=== PATIENT | male | born 1935 | race Caucasian/White ===

== ENCOUNTER 2017-11-17 17:15 | Inpatient (IN) | payer MEDICARE, MEDICAID ==
[2017-11-17] MEDS ORDERED: Lactated Ringer 1,000 ML IV ONE ×2 (17:26→17:42)
[2017-11-17 17:48] LABS: % BASOPHILS 1.5 % (0.0-2.0); % LYMPHOCYTES 24.4 % (20.0-50.0); % NEUTROPHILS 64.1 % (40.0-80.0); BASOPHILE ABSOLUTE 0.1 Th/cumm (0-0.2); EOSINOPHILE ABSOLUTE 0.2 Th/cmm (0.1-0.4); HEMATOCRIT 39.6 % (41.0-60); HEMOGLOBIN 13.2 gm/dL (12-16); LYMPHOCYTE ABSOLUTE 2.4 Th/cmm (1.5-3.0); MEAN CELL VOLUME 95.5 fl (80-99); MEAN CORPUSCULAR HEMOGLOBIN 31.9 pg (27.0-31.0); MEAN CORPUSCULAR HGB CONC 33.4 pg (28.0-36.0); MEAN PLATELET VOLUME 8.7 fl; MONOCYTE ABSOLUTE 0.8 Th/cmm (0.3-1.0); NEUTROPHILE ABSOLUTE 6.3 Th/cmm (1.8-8.0); PLATELET COUNT 322 Th/cmm (150-400); RED BLOOD COUNT 4.15 Mil/cmm (3.80-5.80); RED CELL DISTRIBUTION WIDTH 13.8 % (11.5-20.0); WHITE BLOOD COUNT 9.8 Th/cmm (4.8-10.8)
[2017-11-17 18:55] LABS: CHLORIDE 100 mEq/L (98-107); POTASSIUM SERUM 4.2 mEq/L (3.5-5.1); SODIUM SERUM 134 mEq/L (136-145)
[2017-11-17 18:56] LABS: ALB/GLOB RATIO 0.9 (1.0-1.8); ALBUMIN 2.8 gm/dL (4.2-5.5); ALKALINE PHOSPHATASE 71 U/L (34-104); ANION GAP 13.1 (7.0-16.0); BILIRUBIN,TOTAL 0.3 mg/dL (0.3-1.0); BUN - UREA NITROGEN 11 mg/dL (7-25); CALCIUM SERUM 8.4 mg/dL (8.6-10.3); CARBON DIOXIDE 25.1 mEq/L (21.0-31.0); CREATININE - SERUM 0.6 mg/dL (0.7-1.3); GLUCOSE 152 mg/dL (70-105); MAGNESIUM 1.7 mg/dL (1.9-2.7); PHOSPHOROUS 2.8 mg/dL (2.5-5.0); SGOT 15 U/L (13-39); SGPT/ALT 11 U/L (7-52); TOTAL PROTEIN,SERUM 5.9 gm/dL (6.0-8.3)
[2017-11-17] MEDS ORDERED: Clindamycin 300mg/50mL 300 MG/50 ML BAG IV ONE (19:15)
[2017-11-17] MEDS ORDERED: Clindamycin 150 mg/mL 4mL Vial ONE (19:52)
--- NOTE | 2017-11-17 20:27 | ED Physician Chart ---
ED Chief Complaint/HPI - Patient Information Date Seen:: 11/17/17 Time Seen:: 17:25 Chief Complaint:: increased agitation History of Present Illness:: increased agitation Upon arrival, SBP was high 50's. patient is markedly dehydrated. IV hydration begun. Heart rate was as high as 138 plus. Allergies:: Allergies Allergy/AdvReac Type Severity Reaction Status Date / Time Penicillins Allergy Verified 11/17/17 17:48 Vitals:: Vital Signs - 8 hr 11/17/17 17:22 Temp 97.3 F HR 127 RR 24 BP 83/53 O2 Sat % 94 ED Review of Systems - Review of Systems General/Constitutional: Weakness Skin: Other (skin breakdown) Head: No headache, No light-headedness Eyes: No loss of vision, No pain, No diplopia ENT: No earache, No nasal drainage, No sore throat, No tinnitus Neck: No neck pain, No swelling, No thyromegaly, No stiffness, No mass noted Cardio Vascular: No chest pain, No palpitations, No PND, No orthopnea, No edema Pulmonary: No SOB, No cough, No sputum, No wheezing GI: No nausea, No vomiting, No diarrhea, No pain, No melena, No hematochezia, No constipation, No hematemesis Musculoskeletal: Bone or joint pain Endocrine: No polyuria, No polydipsia Psychiatric: Prior psych history Allergic/Immuno: No urticaria, No angioedema Neurological: No syncope, No focal symptoms, No weakness, No paresthesia, No headache, No seizure, No dizziness, No confusion, No vertigo ED Past Medical History - Past Medical History Obtainable: No Past Medical History: Thyroid disorder, Other (gtube) Psychiatricy History: Bipolar, Other (anxiety disorder and schizoaffective disorder) Family Medical History - Family Member Mother History Unknown: Yes ED Physical Exam - Physical Examination Other Gen/Cons comments:: chronically ill appearing. failure to thrive. Head: Atraumatic Other Eyes comments:: eyes sunken in Other Skin comments:: thoracic decubitus which is deep down to spinal vertebrae. 4 inches x 4 inches in size with necrotic eschar. right hip decubitus about 1.5 x 1.5 inches. left knee decubitus 1 x 1 inch. Neck: Nontender Other Respiratory comments:: decreased breath sounds at bases. Other Cardio Vascular comments:: tachycardia. ED Labs/Radiology/EKG Results - Lab Results Results: Laboratory Tests 11/17/17 11/17/17 11/17/17 17:26 17:35 17:35 WBC 9.8 RBC 4.15 Hgb 13.2 Hct 39.6 L MCV 95.5 MCH 31.9 H MCHC Differential 33.4 RDW 13.8 Plt Count 322 MPV 8.7 Neutrophils % 64.1 Lymphocytes % 24.4 Monocytes % 8.0 Eosinophils % 2.0 Basophils % 1.5 Sodium 134 L Potassium 4.2 Chloride 100 Carbon Dioxide 25.1 Anion Gap 13.1 BUN 11 Creatinine 0.6 L Est GFR ( Amer) TNP Est GFR (Non-Af Amer) TNP BUN/Creatinine Ratio 18.3 Glucose 152 H Calcium 8.4 L Phosphorus 2.8 Magnesium 1.7 L Total Bilirubin 0.3 AST 15 ALT 11 Alkaline Phosphatase 71 Total Protein 5.9 L Albumin 2.8 L Globulin 3.1 Albumin/Globulin Ratio 0.9 L Valproic Acid 19.8 L ED Assessment - Assessment General Assessment: coloring is slightly better and mentation better s/p IV hydration EKG from 20:39:47 p.m.: sinus tachycardia with low voltage and one pvc. spoke to Dr. Cevallos about admitting this patient at 20:25 p.m. ED Septic Shock - . 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
[2017-11-17] MEDS ORDERED: Sodium Chloride 0.9% 1,000 ML IV ONE (20:36)
[2017-11-18 05:17] LABS: % BASOPHILS 0.6 % (0.0-2.0); % EOSINOPHILS 2.9 % (0.0-5.0); % LYMPHOCYTES 22.2 % (20.0-50.0); % MONOCYTES 7.8 % (2.0-10.0); % NEUTROPHILS 66.5 % (40.0-80.0); BASOPHILE ABSOLUTE 0.1 Th/cumm (0-0.2); EOSINOPHILE ABSOLUTE 0.3 Th/cmm (0.1-0.4); HEMATOCRIT 36.9 % (41.0-60); HEMOGLOBIN 12.3 gm/dL (12-16); LYMPHOCYTE ABSOLUTE 2.2 Th/cmm (1.5-3.0); MEAN CORPUSCULAR HEMOGLOBIN 31.7 pg (27.0-31.0); MEAN CORPUSCULAR HGB CONC 33.3 pg (28.0-36.0); MEAN PLATELET VOLUME 9.3 fl; MONOCYTE ABSOLUTE 0.8 Th/cmm (0.3-1.0); NEUTROPHILE ABSOLUTE 6.3 Th/cmm (1.8-8.0); PLATELET COUNT 312 Th/cmm (150-400); RED BLOOD COUNT 3.88 Mil/cmm (3.80-5.80); RED CELL DISTRIBUTION WIDTH 13.8 % (11.5-20.0); WHITE BLOOD COUNT 9.7 Th/cmm (4.8-10.8)
[2017-11-18 05:36] LABS: ALB/GLOB RATIO 0.8 (1.0-1.8); ALBUMIN 2.6 gm/dL (4.2-5.5); ALKALINE PHOSPHATASE 61 U/L (34-104); ANION GAP 8.4 (7.0-16.0); BILIRUBIN,TOTAL 0.3 mg/dL (0.3-1.0); BUN - UREA NITROGEN 8 mg/dL (7-25); CALCIUM SERUM 8.7 mg/dL (8.6-10.3); CARBON DIOXIDE 27.1 mEq/L (21.0-31.0); CHLORIDE 104 mEq/L (98-107); CREATININE - SERUM 0.5 mg/dL (0.7-1.3); GLUCOSE 91 mg/dL (70-105); POTASSIUM SERUM 4.5 mEq/L (3.5-5.1); SGOT 15 U/L (13-39); SGPT/ALT 9 U/L (7-52); SODIUM SERUM 135 mEq/L (136-145); TOTAL PROTEIN,SERUM 5.8 gm/dL (6.0-8.3)
[2017-11-18] MEDS: Levothyroxine 0.075 Mg Tab PO SCH (06:51)
[2017-11-18] MEDS: Docusate Sodium 100 mg/10 mL UD GT SCH (08:36)
--- NOTE | 2017-11-18 08:56 | Diagnostic Imaging Report ---
CHEST X-RAY: AP view INDICATION: Decubitus ulcer COMPARISON: None FINDINGS: Patient is mildly rotated. No focal consolidation or effusions. Left midlung subsegmental atelectasis versus scarring is noted. Heart size is normal. Low lung lungs are noted limiting exam. Osseous structures are intact. Gas-filled loops of bowel are noted. IMPRESSION: No focal consolidation identified. Left midlung subsegmental atelectasis versus scarring. Given patient's clinical history if there is concern for osteomyelitis, nuclear medicine bone scan or MRI may be obtained for further assessment.
--- NOTE | 2017-11-18 08:59 | History and Physical ---
History of Present Illness - HPI Chief Complaint: Increased in agitation HPI: Patient was send from SNF to ER for evaluation for increased in agitation. During ER evaluation was found patient hypotense,, dehydrated and tachicardic reason why he was send to Telemetry. Vital Signs: Last Vital Signs Temp 98.0 F 11/18/17 08:00 Pulse 98 11/18/17 08:00 Resp 18 11/18/17 08:00 BP 112/64 11/18/17 08:00 Pulse Ox 96 11/18/17 08:00 Past Medical History Cardiovascular: Report: CAD, CHF Pulmonary: Report: COPD DIRECT SUPPORT PROFESSIONAL: Report: Dementia GI: Report: Other (Dysphagia, G-tube in place.) Psych: Report: Bipolar, Schizophrenia Musculoskeletal: Report: Muscle Atrophy, Weakness Rheumatologic: Report: No pertinent Hx Infectious Disease: Report: No Pertinent Hx Renal/: Report: No Pertinent Hx Endocrine: Report: No Pertinent Hx Dermatology: Report: Other (Decubit ulcer) - Past Surgical History Past Surgical History: No pertinent Hx Family Medical History - Family Member Mother History Unknown: Yes Social History Smoke: No Alcohol: None Drugs: None Lives: [facility] Domestic Violence: Negative - Medications Home Medications: Home Medication Medication Instructions Recorded Type Acetaminophen [Mapap] 30 ml GT Q6H PRN 11/17/17 History Alprazolam 1 tab GT Q6H PRN 11/17/17 History Ascorbic Acid [Vitamin C] 500 mg GT DAILY 11/17/17 History Bisacodyl 10 mg RC DAILY PRN 11/17/17 History Collagenase Clostridium Hist. 1 appl TP Q72HR 11/17/17 History [Santyl] Divalproex [Depakojessica RANGEL] 125 mg GT TID 11/17/17 History Docusate Sodium [Colace] 100 mg GT DAILY 11/17/17 History Hyoscyamine Sulfate [Levsin-Sl] 1 - 2 mg SL Q4H PRN 11/17/17 History Levothyroxine [Synthroid] 0.075 mg PO QDAC 11/17/17 History Lorazepam [Ativan] 2 mg GT Q6HR PRN 11/17/17 History Midodrine [Proamatine] 10 mg GT Q6HR 11/17/17 History Morphine Sulfate 0.5 ml PO Q2HR PRN 11/17/17 History Ondansetron [Zofran ODT] 4 mg PO Q6HR PRN 11/17/17 History Ppd [Tubersol] 0.1 ml ID QPM 11/17/17 History Protein Supplement [Promod 946 ml] 30 ml GT DAILY 11/17/17 History QUEtiapine Fumarate [SEROquel] 125 mg GT BID 11/17/17 History Zinc Sulfate 220 mg GT DAILY 11/17/17 History - Allergies Allergies/Adverse Reactions: Allergies Allergy/AdvReac Type Severity Reaction Status Date / Time Penicillins Allergy Verified 11/17/17 17:48 Review of Systems - Review of Systems Constitutional: Report: Weakness Eyes: Report: No Significant ENT: Report: No Significant Respiratory: Report: No Significant Cardiovascular: Report: No Significant Gastrointestinal: Report: No Significant Genitourinary: Report: No Significant Musculoskeletal: Report: No Significant Skin: Report: Other (Decubit ulcers) Neurological: Report: Confusion Physical Exam - Physical Exam HEENT: Report: Ears Nose Throat within normal limits Neck: Report: Within normal limits Cardiovascular Systems: Report: Regular, Rate and Rhythm Respiratory: Report: Breath Sounds are within normal limits Abdomen: Report: Non-tender to palpation Back: Report: Other (thoracic decubit ulcers) Extremities: Report: Non-tender to palpation. Skin: Report: Other (Decjubit ulcers in thoracic area and hip area) Neuro/Psych: Report: Other (Patient agitated) - Lab Results All Lab Results last 24 hours: Laboratory Results - last 24 hr 11/17/17 11/17/17 11/17/17 17:26 17:35 17:35 WBC 9.8 RBC 4.15 Hgb 13.2 Hct 39.6 L MCV 95.5 MCH 31.9 H MCHC Differential 33.4 RDW 13.8 Plt Count 322 MPV 8.7 Neutrophils % 64.1 Lymphocytes % 24.4 Monocytes % 8.0 Eosinophils % 2.0 Basophils % 1.5 Sodium Potassium Chloride Carbon Dioxide Anion Gap BUN Creatinine Est GFR ( Amer) Est GFR (Non-Af Amer) BUN/Creatinine Ratio Glucose Calcium Phosphorus Magnesium Total Bilirubin AST ALT Alkaline Phosphatase Total Protein Albumin Globulin Albumin/Globulin Ratio TSH 15.54 H Valproic Acid 19.8 L 11/17/17 11/18/17 11/18/17 17:35 04:30 04:30 WBC 9.7 RBC 3.88 Hgb 12.3 Hct 36.9 L MCV 95.0 MCH 31.7 H MCHC Differential 33.3 RDW 13.8 Plt Count 312 MPV 9.3 Neutrophils % 66.5 Lymphocytes % 22.2 Monocytes % 7.8 Eosinophils % 2.9 Basophils % 0.6 Sodium 134 L 135 L Potassium 4.2 4.5 Chloride 100 104 Carbon Dioxide 25.1 27.1 Anion Gap 13.1 8.4 BUN 11 8 Creatinine 0.6 L 0.5 L Est GFR ( Amer) TNP TNP Est GFR (Non-Af Amer) TNP TNP BUN/Creatinine Ratio 18.3 16.0 Glucose 152 H 91 Calcium 8.4 L 8.7 Phosphorus 2.8 Magnesium 1.7 L Total Bilirubin 0.3 0.3 AST 15 15 ALT 11 9 Alkaline Phosphatase 71 61 Total Protein 5.9 L 5.8 L Albumin 2.8 L 2.6 L Globulin 3.1 3.2 Albumin/Globulin Ratio 0.9 L 0.8 L TSH Valproic Acid - Assessment Assessment: Patient is awake, agitated at moments. Dx: Increased in agitation, Dehydration, Hypotension, Failure to trieve, Decubit ulcer in thoracic area and hip area, COPD, Schizophrenia, Bipolar, Dysphagia. - Plan Plan: Patient is in IV NS cojntinue with SNF meds, wound consult is requested, will continue to monitor.
--- NOTE | 2017-11-18 09:16 | Diagnostic Imaging Report ---
Thoracic spine 2 views History: Decubitus ulcer, rule out osteomyelitis Comparison: None Findings: Exam is limited as patient could not tolerate additional views. Degenerative changes of the spine are noted with spinal scoliosis. Postsurgical changes of the upper abdomen are noted. There appear to be a mild chronic compression deformity of lower vertebral body. No definite subluxation. Assessment of the cervical thoracic junction is limited due to body habitus. There is also increase of the thoracic kyphosis. No gross erosions identified. Gas-filled loops of bowel are noted with copious stool in the right colon. IMPRESSION: Limited examination due to body habitus and spinal scoliosis and thoracic kyphosis. No gross erosions, however, if there is concern for osteomyelitis, follow-up MRI may be obtained for further assessment. Degenerative changes spine and spinal scoliosis. Postsurgical changes in the upper abdomen. In the setting of trauma, if clinical symptoms persist and there is continued concern for an occult fracture, follow up exams in 5-7 days is recommended.
[2017-11-18] MEDS ORDERED: Mag Sulfate 2gm/50mL Premix 2 GM/50 ML BAG IV ONE (10:00)
[2017-11-18] MEDS: Sodium Chloride 0.9% 1,000 ML IV SCH (11:04)
--- NOTE | 2017-11-18 15:05 | Consultation ---
DATE OF CONSULTATION: 11/18/2017 SURGICAL CONSULTATION REFERRING PHYSICIAN: Dr. Cevallos. REASON FOR CONSULTATION: Decubitus ulcer, back. Thank you for referring this patient to me. HISTORY OF PRESENT ILLNESS: This is an 84-year-old male admitted to the hospital because of increased agitation. The patient comes from SNF with previous history of coronary artery disease, CHF, COPD, schizophrenia and dementia and bedridden status apparently. No information other than on the chart because the patient is unable to communicate. LABORATORY STUDIES: CBC is normal and chemistry as well. Chest x-ray shows no acute disease. CT scan of the spine shows kyphosis and scoliosis. PHYSICAL EXAMINATION: GENERAL: The patient is restrained. There is a stage 3 at least, ulcer at the mid spine corresponding to pressure from likely lying down on his back most of the time. This necrotic tissues need to be debrided and application of Santyl would be recommended. We will try and obtain consent for the procedure. JOB# [id number]
[2017-11-18 17:35] LABS: URINE SOURCE CLEAN C
[2017-11-18 17:37] LABS: URINE BILIRUBIN NEGATIVE (NEGATIVE); URINE BLOOD NEGATIVE (NEGATIVE); URINE GLUCOSE (UA) NEGATIVE (NEGATIVE); URINE KETONE NEGATIVE (NEGATIVE); URINE LEUKOCYTE ESTERASE TRACE (NEGATIVE); URINE MICROSCOPIC INDICATED? YES; URINE NITRATE POSITIVE (NEGATIVE); URINE PROTEIN NEGATIVE (NEGATIVE); URINE UROBILINOGEN 0.2 E.U./dL (0.2 - 1.0)
[2017-11-18 17:41] LABS: URINE COLOR YELLOW
[2017-11-18 17:42] LABS: URINE CLARITY HAZY (CLEAR)
[2017-11-18 17:43] LABS: URINE EPITHELIAL CELLS FEW /lpf (FEW); URINE RBC 0-2 /hpf (0-5)
[2017-11-18 17:44] LABS: URINE BACTERIA 3+ /hpf (NONE SEEN)
[2017-11-18 17:50] LABS: AMPHETAMINE URINE NEGATIVE (NEGATIVE); BARBITURATES URINE NEGATIVE (NEGATIVE); BENZODIAZEPINES QUAL URINE POSITIVE (NEGATIVE); CANNABINOID THC NEGATIVE (NEGATIVE); COCAINE METABOLITE QUAL URINE NEGATIVE (NEGATIVE); METHADONE URINE NEGATIVE (NEGATIVE); METHAMPHETAMINES QUAL URINE NEGATIVE (NEGATIVE); OPIATES (MORPHINE) QUAL. URINE NEGATIVE (NEGATIVE); PHENCYCLIDINE (PCP) URINE NEGATIVE (NEGATIVE); TRICYCLICS (TCA) QUAL. URINE POSITIVE (NEGATIVE)
[2017-11-18] MEDS: Levofloxacin 500mg/100mL 500 MG/100 ML BAG IV SCH (20:42)
[2017-11-19 06:28] LABS: % BASOPHILS 0.3 % (0.0-2.0); % EOSINOPHILS 3.1 % (0.0-5.0); % LYMPHOCYTES 29.4 % (20.0-50.0); % MONOCYTES 7.5 % (2.0-10.0); % NEUTROPHILS 59.7 % (40.0-80.0); EOSINOPHILE ABSOLUTE 0.3 Th/cmm (0.1-0.4); HEMATOCRIT 39.6 % (41.0-60); LYMPHOCYTE ABSOLUTE 3.1 Th/cmm (1.5-3.0); MEAN CELL VOLUME 96.8 fl (80-99); MEAN CORPUSCULAR HEMOGLOBIN 31.9 pg (27.0-31.0); MEAN CORPUSCULAR HGB CONC 32.9 pg (28.0-36.0); MEAN PLATELET VOLUME 8.7 fl; MONOCYTE ABSOLUTE 0.8 Th/cmm (0.3-1.0); NEUTROPHILE ABSOLUTE 6.2 Th/cmm (1.8-8.0); PLATELET COUNT 325 Th/cmm (150-400); RED BLOOD COUNT 4.09 Mil/cmm (3.80-5.80); WHITE BLOOD COUNT 10.4 Th/cmm (4.8-10.8)
[2017-11-19] MEDS: Levothyroxine 0.075 Mg Tab PO SCH (06:45)
[2017-11-19] MEDS: Sodium Chloride 0.9% 1,000 ML IV SCH (06:55)
[2017-11-19] MEDS ORDERED: Venelex 60gm Tube TP ONE (07:29)
[2017-11-19] MEDS ORDERED: LIDOCAINE MPF INJ ONE (07:50)
[2017-11-19] MEDS ORDERED: fentaNYL Citrate 100 mcg/2mL Vial ONE (08:06)
[2017-11-19] MEDS ORDERED: Propofol **SURGERY USE ONLY** 20 ML IV ONE (08:07)
[2017-11-19 09:17] LABS: ALB/GLOB RATIO 0.9 (1.0-1.8); ALKALINE PHOSPHATASE 64 U/L (34-104); ANION GAP 15.2 (7.0-16.0); BILIRUBIN,TOTAL 0.3 mg/dL (0.3-1.0); BUN - UREA NITROGEN 8 mg/dL (7-25); CALCIUM SERUM 8.8 mg/dL (8.6-10.3); CARBON DIOXIDE 19.2 mEq/L (21.0-31.0); CHLORIDE 106 mEq/L (98-107); CREATININE - SERUM 0.5 mg/dL (0.7-1.3); GLUCOSE 91 mg/dL (70-105); POTASSIUM SERUM 4.4 mEq/L (3.5-5.1); SGOT 18 U/L (13-39); SGPT/ALT 11 U/L (7-52); SODIUM SERUM 136 mEq/L (136-145); TOTAL PROTEIN,SERUM 6.3 gm/dL (6.0-8.3)
--- NOTE | 2017-11-19 09:19 | General Progress Note ---
Subjective - Review of Systems Service Date: 11/19/17 Subjective: Patient confused Objective - Results Result Diagrams: 11/20/17 05:45 11/20/17 05:45 Recent Labs: Laboratory Last Values WBC 10.4 Th/cmm (4.8-10.8) 11/19/17 05:45 RBC 4.09 Mil/cmm (3.80-5.80) 11/19/17 05:45 Hgb 13.0 gm/dL (12-16) 11/19/17 05:45 Hct 39.6 % (41.0-60) L 11/19/17 05:45 MCV 96.8 fl (80-99) 11/19/17 05:45 MCH 31.9 pg (27.0-31.0) H 11/19/17 05:45 MCHC Differential 32.9 pg (28.0-36.0) 11/19/17 05:45 RDW 14.0 % (11.5-20.0) 11/19/17 05:45 Plt Count 325 Th/cmm (150-400) 11/19/17 05:45 MPV 8.7 fl 11/19/17 05:45 Neutrophils % 59.7 % (40.0-80.0) 11/19/17 05:45 Lymphocytes % 29.4 % (20.0-50.0) 11/19/17 05:45 Monocytes % 7.5 % (2.0-10.0) 11/19/17 05:45 Eosinophils % 3.1 % (0.0-5.0) 11/19/17 05:45 Basophils % 0.3 % (0.0-2.0) 11/19/17 05:45 Sodium 135 mEq/L (136-145) L 11/18/17 04:30 Potassium 4.5 mEq/L (3.5-5.1) 11/18/17 04:30 Chloride 104 mEq/L (98-107) 11/18/17 04:30 Carbon Dioxide 27.1 mEq/L (21.0-31.0) 11/18/17 04:30 Anion Gap 8.4 (7.0-16.0) 11/18/17 04:30 BUN 8 mg/dL (7-25) 11/18/17 04:30 Creatinine 0.5 mg/dL (0.7-1.3) L 11/18/17 04:30 Est GFR ( Amer) TNP 11/18/17 04:30 Est GFR (Non-Af Amer) TNP 11/18/17 04:30 BUN/Creatinine Ratio 16.0 11/18/17 04:30 Glucose 91 mg/dL (70-105) 11/18/17 04:30 POC Glucose 79 MG/DL (70 - 105) 11/19/17 06:25 Calcium 8.7 mg/dL (8.6-10.3) 11/18/17 04:30 Phosphorus 2.8 mg/dL (2.5-5.0) 11/17/17 17:35 Magnesium 1.7 mg/dL (1.9-2.7) L 11/17/17 17:35 Total Bilirubin 0.3 mg/dL (0.3-1.0) 11/18/17 04:30 AST 15 U/L (13-39) 11/18/17 04:30 ALT 9 U/L (7-52) 11/18/17 04:30 Alkaline Phosphatase 61 U/L (34-104) 11/18/17 04:30 Total Protein 5.8 gm/dL (6.0-8.3) L 11/18/17 04:30 Albumin 2.6 gm/dL (4.2-5.5) L 11/18/17 04:30 Globulin 3.2 gm/dL 11/18/17 04:30 Albumin/Globulin Ratio 0.8 (1.0-1.8) L 11/18/17 04:30 TSH 15.54 uIU/ml (0.34-5.60) H 11/17/17 17:35 Urine Source CLEAN C 11/18/17 17:30 Urine Color YELLOW 11/18/17 17:30 Urine Clarity HAZY (CLEAR) 11/18/17 17:30 Urine pH 6.0 (4.6 - 8.0) 11/18/17 17:30 Ur Specific [place] 1.020 (1.005-1.030) 11/18/17 17:30 Urine Protein NEGATIVE mg/dL (NEGATIVE) 11/18/17 17:30 Urine Glucose (UA) NEGATIVE mg/dL (NEGATIVE) 11/18/17 17:30 Urine Ketones NEGATIVE mg/dL (NEGATIVE) 11/18/17 17:30 Urine Blood NEGATIVE (NEGATIVE) 11/18/17 17:30 Urine Nitrate POSITIVE (NEGATIVE) H 11/18/17 17:30 Urine Bilirubin NEGATIVE (NEGATIVE) 11/18/17 17:30 Urine Urobilinogen 0.2 E.U./dL (0.2 - 1.0) 11/18/17 17:30 Ur Leukocyte Esterase TRACE (NEGATIVE) H 11/18/17 17:30 Urine RBC 0-2 /hpf (0-5) H 11/18/17 17:30 Urine WBC 2-5 /hpf (0-5) 11/18/17 17:30 Ur Epithelial Cells FEW /lpf (FEW) 11/18/17 17:30 Urine Bacteria 3+ /hpf (NONE SEEN) H 11/18/17 17:30 Urine Opiates Screen NEGATIVE (NEGATIVE) 11/18/17 17:30 Urine Methadone Screen NEGATIVE (NEGATIVE) 11/18/17 17:30 Ur Barbiturates Screen NEGATIVE (NEGATIVE) 11/18/17 17:30 Valproic Acid 19.8 ug/mL (50.0-100.0) L 11/17/17 17:26 Ur Tricyclics Screen POSITIVE (NEGATIVE) H 11/18/17 17:30 Ur Phencyclidine Scrn NEGATIVE (NEGATIVE) 11/18/17 17:30 Amphetamines Screen NEGATIVE (NEGATIVE) 11/18/17 17:30 U Methamphetamines Scrn NEGATIVE (NEGATIVE) 11/18/17 17:30 U Benzodiazepines Scrn POSITIVE (NEGATIVE) H 11/18/17 17:30 U Cocaine Metab Screen NEGATIVE (NEGATIVE) 11/18/17 17:30 U Cannabinoids Screen NEGATIVE (NEGATIVE) 11/18/17 17:30 - Physical Exam Vitals and I&O: Vital Signs Temp 97.6 F 11/19/17 08:00 Pulse 109 11/19/17 08:00 Resp 18 11/19/17 08:00 BP 127/59 11/19/17 08:00 Pulse Ox 96 11/19/17 08:00 Intake & Output 11/18/17 11/19/17 11/19/17 18:59 06:59 18:59 Intake Total 1161.25 488.75 Balance 1161.25 488.75 Weight (lbs) 456.768 kg 52.617 kg Intake: Intake, IV Amount 511.25 488.75 Sodium Chloride 0.9% 1, 511.25 488.75 000 ml @ 75 mls/hr IV . [id number] [facility] Rx#:[id number] Tube Feeding 650 Other: # Voids 4 # Bowel Movements 0 Weight Source Bedscale Bedscale Active Medications: Current Medications Acetaminophen (Tylenol 650mg/20.3ml Suspension) 650 mg GT Q6H PRN PRN Reason: Pain (Mild) Ascorbic Acid (Vitamin C) 500 mg GT DAILY BRAD Stop: 01/17/18 08:59 Last Admin: 11/18/17 08:36 Dose: 500 mg Bisacodyl (Dulcolax 10 Mg Supp) 10 mg RC DAILY PRN PRN Reason: Constipation Stop: 01/16/18 22:18 [place] Oil/[place] Balsam/Trypsin (Venelex) 1 appl TP DAILY BRAD Stop: 01/18/18 08:59 Divalproex Sodium (Depakote Sprinkle) 125 mg GT TID [facility]; Protocol Stop: 01/17/18 10:59 Last Admin: 11/18/17 20:42 Dose: 125 mg Docusate Sodium (Colace) 100 mg GT DAILY BRAD Stop: 01/17/18 08:59 Last Admin: 11/18/17 08:36 Dose: 100 mg Sodium Chloride (Nacl 0.9%) 1,000 mls @ 75 mls/hr IV .[id number] BRAD Stop: 01/17/18 09:59 Last Admin: 11/19/17 06:55 Dose: 75 mls/hr Levofloxacin (Levaquin Pb) 500 mg in 100 mls @ 100 mls/hr IV Q24HR BRAD Stop: 01/17/18 20:59 Last Admin: 11/18/17 20:42 Dose: 100 mls/hr Levothyroxine Sodium (Synthroid) 0.075 mg PO QDAC BRAD Stop: 01/17/18 07:29 Last Admin: 11/19/17 06:45 Dose: Not Given Lorazepam (Ativan) 0.5 mg PO Q6H PRN; Protocol PRN Reason: Agitation Stop: 01/17/18 09:04 Mupirocin (Bactroban Oint) 1 appl NS BID BRAD Stop: 11/23/17 09:01 Last Admin: 08/21/18 18:48 Dose: 1 appl Ondansetron HCl (Zofran Odt) 4 mg SL Q6HR PRN PRN Reason: Nausea Stop: 01/16/18 22:18 Quetiapine Fumarate (Seroquel) 125 mg GT BID [facility]; Protocol Stop: 01/17/18 08:59 Last Admin: 11/18/17 16:29 Dose: 125 mg Zinc Sulfate (Zinc Sulfate) 220 mg GT DAILY [facility] Stop: 01/17/18 08:59 Last Admin: 11/18/17 08:36 Dose: 220 mg General: Alert, Other (Confused and agressive at moments) HEENT: Atraumatic Neck: Supple Cardiovascular: Regular rate Lungs: Clear to auscultation Abdomen: Bowel sounds, Soft Extremities: Other (No edema) Neurological: Other (Non ambulatory) Skin: Other (Decubit ulcers in thoracic and hip area) Psych/Mental Status: Other (Patient is confused) Assessment/Plan - Assessment Assessment: Patient is awake, agitated at moments. UA shows UTI. Dx: Increased in agitation , Dehydration, Hypotension, Failure to trieve, Decubit ulcer in thoracic area and hip area, COPD, Schizophrenia, Bipolar, Dysphagia, UTI. - Plan Plan: Patient is in IV NS cojntinue with SNF meds,Started in IV AB. wound will be debrided today. will continue to monitor. Nutritional Asmnt/Malnutr-PDOC - Dietary Evaluation Malnutrition Findings (Please click <Entered> for more info): Nutritional Asmnt/Malnutrition Start: 11/18/17 14: 31 Text: Status: Complete Freq: Protocol: Document 11/18/17 14:31 LCHENG (Rec: 11/18/17 15:02 [email or web address]) Nutritional Asmnt/Malnutrition Patient General Information Nutritional Screening High Risk Diagnosis dehydration Pertinent Medical Hx/Surgical Hx thyroid, Gtube placement, bipolar, anxiety, schizophrenia Subjective Information Pt admitted with Gtube and multiple wounds. Per nurse note, pt may have surgical procedure for excisional debridement decubitus ulcers, wait for consent. Current Diet Order/ Nutrition Support Jevity 1.2 237ml x 4 daily Pertinent Medications vit C, colace, synthroid, seroquel, nacl 0.9%, zinc Pertinent Labs 11/18 Na 135, Cr 0.5 Nutritional Hx/Data Height 1.68 m Height (Calculated Centimeters) 167.6 Current Weight (lbs) 48.534 kg Weight (Calculated Kilograms) 48.5 Weight (Calculated Grams) 13716.4 [place] Body Weight 142 Body Mass Index (BMI) 17.2 Weight Status Underweight GI Symptoms GI Symptoms None Last BM none Difficult in: None Usual diet at home jevity 1.2 237ml x 4 daily at care facility per chart Skin Integrity/Comment: pressure area reddened to coccyx and ulceration to upper back Estimated Nutritional Goals BEE in Kcals: Using Current wt Calories/Kcals/Kg 25-30 Kcals Calculated 2702-2214 Protein: Using Current wt Protein g/k.2-1.4 Protein Calculated 59-69 Fluid: ml 1470-1715ml (1ml/kcal) Nutritional Problem 2. Problem Problem inadequate intake from enteral feeding Etiology bolus feeding not meeting 100% of nutritional needs Signs/Symptoms: bolus feeding only provide 1138kcal and 53g protein 1. Problem Problem increased nutrition needs Etiology impaired skin integrity and underweight Signs/Symptoms: ulcer/wounds, BMI 17.3 Intervention/Recommendation Comments 1. Recommend increased bolus feeding to 235ml x 5 times daily. This will provide 1422kcal, 66g protein, 956ml free water, meeting 100% of nutritional needs 2. Monitor TF tolerance, wt, skin integrity and labs 3. F/U as high risk in 2-3 days, 11/20-11/21 Expected Outcomes/Goals Expected Outcomes/Goals 1. Pt to meet at least 75% of nutritional needs via nutrition support with tolerance 2. Wt stability, skin integrity to improve, labs to approach WNL.
--- NOTE | 2017-11-19 09:54 | Operative Report ---
DATE OF SURGERY: 11/19/2017 PREOPERATIVE DIAGNOSES: 1. Severe kyphoscoliosis. 2. Decubitus ulcer of the back, level T12, size 4 x 5 cm depth to the fascia. 3. Right lateral ulcer, level T11, size 1 x 1 cm depth to the fascia. SURGEON: Dr. Kriss Obrien ANESTHESIA: MAC. ANESTHESIOLOGIST: Dr. Reyes. DESCRIPTION OF PROCEDURE: The patient was given IV sedation. The back ulcers were prepped with Betadine and draped, 1% lidocaine was used to infiltrate around the area of the ulcers. Scissors were used to sharply debride all tissues, which extended all the way to the fascia, but the bone was spared. Both ulcers were debrided in the same fashion. Bleeders were electrocoagulated. Application of Venelex and Optifoam was done. JOB# [id number]
[2017-11-19] MEDS: Docusate Sodium 100 mg/10 mL UD GT SCH (10:15)
[2017-11-19] MEDS: Venelex 60gm Tube TP SCH (10:15)
[2017-11-19] MEDS ORDERED: Probiotic Screen MC PRN (11:35)
[2017-11-19] MEDS: Lactobacillus Rhamnosus GG 15 Billion CFU CAP.SPRINK PO SCH (13:23)
--- NOTE | 2017-11-19 19:14 | Consultation ---
DATE OF CONSULTATION: 11/19/2017 PHYSICIAN REQUESTING CONSULTATION: Mushtaq Cevallos M.D. REASON FOR CONSULTATION: Agitation and psychosis. Staff was spoken to. The patient is interviewed. Chart is reviewed. HISTORY OF PRESENT ILLNESS: This patient is an 82-year-old male, a resident of a assisted facility that is the [place]. Information obtained by directly interviewing the patient. The patient is reported to have been very agitated and confused and the patient has been sent for admission into Geropsych Unit, but the patient is reported to have been hypotensive and dehydrated and the patient is admitted to the Telemetry for further stabilization. During the evaluation, the patient has been noted to be agitated and reported to have been trying to strike out at the staff members and the patient ____ and has to be redirected. At the time of evaluation, the patient has been on 125 mg three times a day of Depakote via G-tube, also Seroquel 125 mg twice a day, and the patient has been getting alprazolam q. 6 hours p.r.n. Staff was spoken to. Then, during the interview, the patient has been noted to be paranoid, is not providing much information, but coping skills at this time are noted to be very poor. The patient is getting easily frustrated. PAST PSYCHIATRIC HISTORY: Details are unknown. SOCIAL HISTORY: The patient is a resident of a assisted facility. MENTAL EXAMINATION: The patient is an 82 years old, looking his stated age, superficially cooperative. Eye contact is poor. Mood is noted to be irritable. Affect is constricted. Insight and judgment are noted to be still impaired. Impulse control seems to be limited. Coping skills are noted to be limited. The patient has been having difficult time to cope with the stress. The patient has paranoid delusions, but denies any command hallucinations. DIAGNOSTIC IMPRESSION: AXIS IA: Psychotic disorder, not otherwise specified. AXIS IB: Dementia and behavioral change, secondary trait. PLAN: To change the Seroquel to 100 mg twice a day because of hypotensive episodes. The patient is going to be followed up with supportive therapy. Follow the patient with supportive therapy and closely monitor the patient. Thank you, Dr. Cevallos for allowing me to participate in the care of the patient. JOB# [id number]
[2017-11-20] MEDS: Levofloxacin 500mg/100mL 500 MG/100 ML BAG IV SCH ×2 (05:34→21:18)
[2017-11-20] MEDS: Levothyroxine 0.075 Mg Tab PO SCH (06:41)
[2017-11-20 06:49] LABS: % BASOPHILS 0.4 % (0.0-2.0); % LYMPHOCYTES 19.6 % (20.0-50.0); % MONOCYTES 7.9 % (2.0-10.0); % NEUTROPHILS 70.1 % (40.0-80.0); EOSINOPHILE ABSOLUTE 0.2 Th/cmm (0.1-0.4); HEMATOCRIT 38.7 % (41.0-60); LYMPHOCYTE ABSOLUTE 1.9 Th/cmm (1.5-3.0); MEAN CELL VOLUME 93.7 fl (80-99); MEAN CORPUSCULAR HEMOGLOBIN 31.5 pg (27.0-31.0); MEAN CORPUSCULAR HGB CONC 33.6 pg (28.0-36.0); MEAN PLATELET VOLUME 9.4 fl; MONOCYTE ABSOLUTE 0.8 Th/cmm (0.3-1.0); PLATELET COUNT 310 Th/cmm (150-400); RED BLOOD COUNT 4.12 Mil/cmm (3.80-5.80); RED CELL DISTRIBUTION WIDTH 13.8 % (11.5-20.0); WHITE BLOOD COUNT 9.9 Th/cmm (4.8-10.8)
[2017-11-20 07:05] LABS: ALB/GLOB RATIO 0.9 (1.0-1.8); ALBUMIN 3.1 gm/dL (4.2-5.5); ALKALINE PHOSPHATASE 71 U/L (34-104); ANION GAP 11.8 (7.0-16.0); BILIRUBIN,TOTAL 0.4 mg/dL (0.3-1.0); BUN - UREA NITROGEN 8 mg/dL (7-25); CARBON DIOXIDE 26.7 mEq/L (21.0-31.0); CHLORIDE 101 mEq/L (98-107); CREATININE - SERUM 0.5 mg/dL (0.7-1.3); GLUCOSE 95 mg/dL (70-105); POTASSIUM SERUM 4.5 mEq/L (3.5-5.1); SGOT 18 U/L (13-39); SGPT/ALT 11 U/L (7-52); SODIUM SERUM 135 mEq/L (136-145); TOTAL PROTEIN,SERUM 6.7 gm/dL (6.0-8.3)
[2017-11-20] MEDS: Docusate Sodium 100 mg/10 mL UD GT SCH (08:44)
[2017-11-20] MEDS: Lactobacillus Rhamnosus GG 15 Billion CFU CAP.SPRINK PO SCH (08:45)
[2017-11-20] MEDS: Venelex 60gm Tube TP SCH (08:46)
--- NOTE | 2017-11-20 09:09 | General Progress Note ---
Subjective - Review of Systems Service Date: 11/20/17 Subjective: Patient confused Objective - Results Result Diagrams: 11/20/17 05:45 11/20/17 05:45 Recent Labs: Laboratory Last Values WBC 9.9 Th/cmm (4.8-10.8) 11/20/17 05:45 RBC 4.12 Mil/cmm (3.80-5.80) 11/20/17 05:45 Hgb 13.0 gm/dL (12-16) 11/20/17 05:45 Hct 38.7 % (41.0-60) L 11/20/17 05:45 MCV 93.7 fl (80-99) 11/20/17 05:45 MCH 31.5 pg (27.0-31.0) H 11/20/17 05:45 MCHC Differential 33.6 pg (28.0-36.0) 11/20/17 05:45 RDW 13.8 % (11.5-20.0) 11/20/17 05:45 Plt Count 310 Th/cmm (150-400) 11/20/17 05:45 MPV 9.4 fl 11/20/17 05:45 Neutrophils % 70.1 % (40.0-80.0) 11/20/17 05:45 Lymphocytes % 19.6 % (20.0-50.0) L 11/20/17 05:45 Monocytes % 7.9 % (2.0-10.0) 11/20/17 05:45 Eosinophils % 2.0 % (0.0-5.0) 11/20/17 05:45 Basophils % 0.4 % (0.0-2.0) 11/20/17 05:45 Sodium 135 mEq/L (136-145) L 11/20/17 05:45 Potassium 4.5 mEq/L (3.5-5.1) 11/20/17 05:45 Chloride 101 mEq/L (98-107) 11/20/17 05:45 Carbon Dioxide 26.7 mEq/L (21.0-31.0) 11/20/17 05:45 Anion Gap 11.8 (7.0-16.0) 11/20/17 05:45 BUN 8 mg/dL (7-25) 11/20/17 05:45 Creatinine 0.5 mg/dL (0.7-1.3) L 11/20/17 05:45 Est GFR ( Amer) TNP 11/20/17 05:45 Est GFR (Non-Af Amer) TNP 11/20/17 05:45 BUN/Creatinine Ratio 16.0 11/20/17 05:45 Glucose 95 mg/dL (70-105) 11/20/17 05:45 POC Glucose 79 MG/DL (70 - 105) 11/19/17 06:25 Calcium 9.0 mg/dL (8.6-10.3) 11/20/17 05:45 Phosphorus 2.8 mg/dL (2.5-5.0) 11/17/17 17:35 Magnesium 1.7 mg/dL (1.9-2.7) L 11/17/17 17:35 Total Bilirubin 0.4 mg/dL (0.3-1.0) 11/20/17 05:45 AST 18 U/L (13-39) 11/20/17 05:45 ALT 11 U/L (7-52) 11/20/17 05:45 Alkaline Phosphatase 71 U/L (34-104) 11/20/17 05:45 Total Protein 6.7 gm/dL (6.0-8.3) 11/20/17 05:45 Albumin 3.1 gm/dL (4.2-5.5) L 11/20/17 05:45 Globulin 3.6 gm/dL 11/20/17 05:45 Albumin/Globulin Ratio 0.9 (1.0-1.8) L 11/20/17 05:45 TSH 15.54 uIU/ml (0.34-5.60) H 11/17/17 17:35 Urine Source CLEAN C 11/18/17 17:30 Urine Color YELLOW 11/18/17 17:30 Urine Clarity HAZY (CLEAR) 11/18/17 17:30 Urine pH 6.0 (4.6 - 8.0) 11/18/17 17:30 Ur Specific [place] 1.020 (1.005-1.030) 11/18/17 17:30 Urine Protein NEGATIVE mg/dL (NEGATIVE) 11/18/17 17:30 Urine Glucose (UA) NEGATIVE mg/dL (NEGATIVE) 11/18/17 17:30 Urine Ketones NEGATIVE mg/dL (NEGATIVE) 11/18/17 17:30 Urine Blood NEGATIVE (NEGATIVE) 11/18/17 17:30 Urine Nitrate POSITIVE (NEGATIVE) H 11/18/17 17:30 Urine Bilirubin NEGATIVE (NEGATIVE) 11/18/17 17:30 Urine Urobilinogen 0.2 E.U./dL (0.2 - 1.0) 11/18/17 17:30 Ur Leukocyte Esterase TRACE (NEGATIVE) H 11/18/17 17:30 Urine RBC 0-2 /hpf (0-5) H 11/18/17 17:30 Urine WBC 2-5 /hpf (0-5) 11/18/17 17:30 Ur Epithelial Cells FEW /lpf (FEW) 11/18/17 17:30 Urine Bacteria 3+ /hpf (NONE SEEN) H 11/18/17 17:30 Urine Opiates Screen NEGATIVE (NEGATIVE) 11/18/17 17:30 Urine Methadone Screen NEGATIVE (NEGATIVE) 11/18/17 17:30 Ur Barbiturates Screen NEGATIVE (NEGATIVE) 11/18/17 17:30 Valproic Acid 19.8 ug/mL (50.0-100.0) L 11/17/17 17:26 Ur Tricyclics Screen POSITIVE (NEGATIVE) H 11/18/17 17:30 Ur Phencyclidine Scrn NEGATIVE (NEGATIVE) 11/18/17 17:30 Amphetamines Screen NEGATIVE (NEGATIVE) 11/18/17 17:30 U Methamphetamines Scrn NEGATIVE (NEGATIVE) 11/18/17 17:30 U Benzodiazepines Scrn POSITIVE (NEGATIVE) H 11/18/17 17:30 U Cocaine Metab Screen NEGATIVE (NEGATIVE) 11/18/17 17:30 U Cannabinoids Screen NEGATIVE (NEGATIVE) 11/18/17 17:30 - Physical Exam Vitals and I&O: Vital Signs Temp 98.3 F 11/20/17 08:00 Pulse 100 11/20/17 08:00 Resp 18 11/20/17 08:00 BP 118/73 11/20/17 08:00 Pulse Ox 98 11/20/17 08:00 Intake & Output 11/19/17 11/20/17 11/20/17 18:59 06:59 18:59 Intake Total 660 890 Balance 660 890 Weight (lbs) 52.617 kg 52.707 kg Intake: Tube Feeding 660 290 Other 600 Other: # Voids 5 3 # Bowel Movements 1 Stool Characteristics Soft Formed Weight Source Bedscale Bedscale Active Medications: Current Medications Acetaminophen (Tylenol 650mg/20.3ml Suspension) 650 mg GT Q6H PRN PRN Reason: Pain (Mild) Ascorbic Acid (Vitamin C) 500 mg GT DAILY [facility] Stop: 01/17/18 08:59 Last Admin: 11/20/17 08:43 Dose: 500 mg Bisacodyl (Dulcolax 10 Mg Supp) 10 mg RC DAILY PRN PRN Reason: Constipation Stop: 01/16/18 22:18 [place] Oil/[place]ian Balsam/Trypsin (Venelex) 1 appl TP DAILY [facility] Stop: 01/18/18 08:59 Last Admin: 11/20/17 08:46 Dose: 1 appl Divalproex Sodium (Depakote Sprinkle) 125 mg GT TID [facility]; Protocol Stop: 01/17/18 10:59 Last Admin: 11/20/17 08:44 Dose: 125 mg Docusate Sodium (Colace) 100 mg GT DAILY [facility] Stop: 01/17/18 08:59 Last Admin: 11/20/17 08:44 Dose: 100 mg Sodium Chloride (Nacl 0.9%) 1,000 mls @ 75 mls/hr IV .[id number] [facility] Stop: 01/17/18 09:59 Last Admin: 11/19/17 06:55 Dose: 75 mls/hr Levofloxacin (Levaquin Pb) 500 mg in 100 mls @ 100 mls/hr IV Q24HR [facility] Stop: 01/17/18 20:59 Last Admin: 11/20/17 05:34 Dose: Not Given Lactobacillus Rhamnosus (Culturelle 15b) 1 each PO DAILY [facility] Stop: 01/18/18 13:59 Last Admin: 11/20/17 08:45 Dose: 1 each Levothyroxine Sodium (Synthroid) 0.075 mg PO QDAC [facility] Stop: 01/17/18 07:29 Last Admin: 11/20/17 06:41 Dose: 0.075 mg Lorazepam (Ativan) 0.5 mg PO Q6H PRN; Protocol PRN Reason: Agitation Stop: 01/17/18 09:04 Last Admin: 11/20/17 06:04 Dose: 0.5 mg Miscellaneous (Probiotic Screen) 1 ea MC PRN PRN PRN Reason: PROTOCOL Stop: 01/18/18 11:34 Mupirocin (Bactroban Oint) 1 appl NS BID [facility] Stop: 11/23/17 09:01 Last Admin: 11/20/17 08:46 Dose: 1 appl Ondansetron HCl (Zofran Odt) 4 mg SL Q6HR PRN PRN Reason: Nausea Stop: 01/16/18 22:18 Quetiapine Fumarate (Seroquel) 100 mg GT BID [facility] Stop: 01/19/18 08:59 Last Admin: 11/20/17 08:45 Dose: 100 mg Zinc Sulfate (Zinc Sulfate) 220 mg GT DAILY [facility] Stop: 01/17/18 08:59 Last Admin: 11/20/17 08:45 Dose: 220 mg General: Alert, Other (Confused and agressive at moments) HEENT: Atraumatic Neck: Supple Cardiovascular: Regular rate Lungs: Clear to auscultation Abdomen: Bowel sounds, Soft Extremities: Other (No edema) Neurological: Other (Non ambulatory) Skin: Other (Decubit ulcers in thoracic and hip area) Psych/Mental Status: Other (Patient is confused) - Procedures Procedures: Procedures Procedure Code Date EXCISION OF BACK SUBCU/FASCIA, OPEN APPROACH [id number] 11/17/17 EXCISION OF PELVIC SUBCU/FASCIA, OPEN APPROACH [id number] 11/17/17 Assessment/Plan - Assessment Assessment: Patient is awake, agitated at moments. UA shows UTI. Dx: Increased in agitation , Dehydration, Hypotension, Failure to trieve, Decubit ulcer in thoracic area and hip area, COPD, Schizophrenia, Bipolar, Dysphagia, UTI. - Plan Plan: Patient is in IV NS continue with SNF meds,Started in IV AB. Wound was debrided yesterday. Patient improving. will continue to monitor. Nutritional Asmnt/Malnutr-PDOC - Dietary Evaluation Malnutrition Findings (Please click <Entered> for more info): Nutritional Asmnt/Malnutrition Start: 11/18/17 14: 31 Text: Status: Complete Freq: Protocol: Document 11/18/17 14:31 LCHENG (Rec: 11/18/17 15:02 RADHIKA [email or web address]) Nutritional Asmnt/Malnutrition Patient General Information Nutritional Screening High Risk Diagnosis dehydration Pertinent Medical Hx/Surgical Hx thyroid, Gtube placement, bipolar, anxiety, schizophrenia Subjective Information Pt admitted with Gtube and multiple wounds. Per nurse note, pt may have surgical procedure for excisional debridement decubitus ulcers, wait for consent. Current Diet Order/ Nutrition Support Jevity 1.2 237ml x 4 daily Pertinent Medications vit C, colace, synthroid, seroquel, nacl 0.9%, zinc Pertinent Labs 11/18 Na 135, Cr 0.5 Nutritional Hx/Data Height 1.68 m Height (Calculated Centimeters) 167.6 Current Weight (lbs) 48.534 kg Weight (Calculated Kilograms) 48.5 Weight (Calculated Grams) 74995.4 [place] Body Weight 142 Body Mass Index (BMI) 17.2 Weight Status Underweight GI Symptoms GI Symptoms None Last BM none Difficult in: None Usual diet at home jevity 1.2 237ml x 4 daily at care facility per chart Skin Integrity/Comment: pressure area reddened to coccyx and ulceration to upper back Estimated Nutritional Goals BEE in Kcals: Using Current wt Calories/Kcals/Kg 25-30 Kcals Calculated 1766-0814 Protein: Using Current wt Protein g/k.2-1.4 Protein Calculated 59-69 Fluid: ml 1470-1715ml (1ml/kcal) Nutritional Problem 2. Problem Problem inadequate intake from enteral feeding Etiology bolus feeding not meeting 100% of nutritional needs Signs/Symptoms: bolus feeding only provide 1138kcal and 53g protein 1. Problem Problem increased nutrition needs Etiology impaired skin integrity and underweight Signs/Symptoms: ulcer/wounds, BMI 17.3 Intervention/Recommendation Comments 1. Recommend increased bolus feeding to 235ml x 5 times daily. This will provide 1422kcal, 66g protein, 956ml free water, meeting 100% of nutritional needs 2. Monitor TF tolerance, wt, skin integrity and labs 3. F/U as high risk in 2-3 days, 11/20-11/21 Expected Outcomes/Goals Expected Outcomes/Goals 1. Pt to meet at least 75% of nutritional needs via nutrition support with tolerance 2. Wt stability, skin integrity to improve, labs to approach WNL.
--- NOTE | 2017-11-20 11:05 | General Progress Note ---
Subjective - Review of Systems Service Date: 11/20/17 Events since last encounter: continue local wound care Objective - Results Result Diagrams: 11/20/17 05:45 11/20/17 05:45 Recent Labs: Laboratory Last Values WBC 9.9 Th/cmm (4.8-10.8) 11/20/17 05:45 RBC 4.12 Mil/cmm (3.80-5.80) 11/20/17 05:45 Hgb 13.0 gm/dL (12-16) 11/20/17 05:45 Hct 38.7 % (41.0-60) L 11/20/17 05:45 MCV 93.7 fl (80-99) 11/20/17 05:45 MCH 31.5 pg (27.0-31.0) H 11/20/17 05:45 MCHC Differential 33.6 pg (28.0-36.0) 11/20/17 05:45 RDW 13.8 % (11.5-20.0) 11/20/17 05:45 Plt Count 310 Th/cmm (150-400) 11/20/17 05:45 MPV 9.4 fl 11/20/17 05:45 Neutrophils % 70.1 % (40.0-80.0) 11/20/17 05:45 Lymphocytes % 19.6 % (20.0-50.0) L 11/20/17 05:45 Monocytes % 7.9 % (2.0-10.0) 11/20/17 05:45 Eosinophils % 2.0 % (0.0-5.0) 11/20/17 05:45 Basophils % 0.4 % (0.0-2.0) 11/20/17 05:45 Sodium 135 mEq/L (136-145) L 11/20/17 05:45 Potassium 4.5 mEq/L (3.5-5.1) 11/20/17 05:45 Chloride 101 mEq/L (98-107) 11/20/17 05:45 Carbon Dioxide 26.7 mEq/L (21.0-31.0) 11/20/17 05:45 Anion Gap 11.8 (7.0-16.0) 11/20/17 05:45 BUN 8 mg/dL (7-25) 11/20/17 05:45 Creatinine 0.5 mg/dL (0.7-1.3) L 11/20/17 05:45 Est GFR ( Amer) TNP 11/20/17 05:45 Est GFR (Non-Af Amer) TNP 11/20/17 05:45 BUN/Creatinine Ratio 16.0 11/20/17 05:45 Glucose 95 mg/dL (70-105) 11/20/17 05:45 POC Glucose 79 MG/DL (70 - 105) 11/19/17 06:25 Calcium 9.0 mg/dL (8.6-10.3) 11/20/17 05:45 Phosphorus 2.8 mg/dL (2.5-5.0) 11/17/17 17:35 Magnesium 1.7 mg/dL (1.9-2.7) L 11/17/17 17:35 Total Bilirubin 0.4 mg/dL (0.3-1.0) 11/20/17 05:45 AST 18 U/L (13-39) 11/20/17 05:45 ALT 11 U/L (7-52) 11/20/17 05:45 Alkaline Phosphatase 71 U/L (34-104) 11/20/17 05:45 Total Protein 6.7 gm/dL (6.0-8.3) 11/20/17 05:45 Albumin 3.1 gm/dL (4.2-5.5) L 11/20/17 05:45 Globulin 3.6 gm/dL 11/20/17 05:45 Albumin/Globulin Ratio 0.9 (1.0-1.8) L 11/20/17 05:45 TSH 15.54 uIU/ml (0.34-5.60) H 11/17/17 17:35 Urine Source CLEAN C 11/18/17 17:30 Urine Color YELLOW 11/18/17 17:30 Urine Clarity HAZY (CLEAR) 11/18/17 17:30 Urine pH 6.0 (4.6 - 8.0) 11/18/17 17:30 Ur Specific [place] 1.020 (1.005-1.030) 11/18/17 17:30 Urine Protein NEGATIVE mg/dL (NEGATIVE) 11/18/17 17:30 Urine Glucose (UA) NEGATIVE mg/dL (NEGATIVE) 11/18/17 17:30 Urine Ketones NEGATIVE mg/dL (NEGATIVE) 11/18/17 17:30 Urine Blood NEGATIVE (NEGATIVE) 11/18/17 17:30 Urine Nitrate POSITIVE (NEGATIVE) H 11/18/17 17:30 Urine Bilirubin NEGATIVE (NEGATIVE) 11/18/17 17:30 Urine Urobilinogen 0.2 E.U./dL (0.2 - 1.0) 11/18/17 17:30 Ur Leukocyte Esterase TRACE (NEGATIVE) H 11/18/17 17:30 Urine RBC 0-2 /hpf (0-5) H 11/18/17 17:30 Urine WBC 2-5 /hpf (0-5) 11/18/17 17:30 Ur Epithelial Cells FEW /lpf (FEW) 11/18/17 17:30 Urine Bacteria 3+ /hpf (NONE SEEN) H 11/18/17 17:30 Urine Opiates Screen NEGATIVE (NEGATIVE) 11/18/17 17:30 Urine Methadone Screen NEGATIVE (NEGATIVE) 11/18/17 17:30 Ur Barbiturates Screen NEGATIVE (NEGATIVE) 11/18/17 17:30 Valproic Acid 19.8 ug/mL (50.0-100.0) L 11/17/17 17:26 Ur Tricyclics Screen POSITIVE (NEGATIVE) H 11/18/17 17:30 Ur Phencyclidine Scrn NEGATIVE (NEGATIVE) 11/18/17 17:30 Amphetamines Screen NEGATIVE (NEGATIVE) 11/18/17 17:30 U Methamphetamines Scrn NEGATIVE (NEGATIVE) 11/18/17 17:30 U Benzodiazepines Scrn POSITIVE (NEGATIVE) H 11/18/17 17:30 U Cocaine Metab Screen NEGATIVE (NEGATIVE) 11/18/17 17:30 U Cannabinoids Screen NEGATIVE (NEGATIVE) 11/18/17 17:30 - Physical Exam Vitals and I&O: Vital Signs Temp 98.3 F 11/20/17 08:00 Pulse 100 11/20/17 08:00 Resp 18 11/20/17 08:00 BP 118/73 11/20/17 08:00 Pulse Ox 98 11/20/17 08:00 Intake & Output 11/19/17 11/20/17 11/20/17 18:59 06:59 18:59 Intake Total 660 890 Balance 660 890 Weight (lbs) 52.617 kg 52.707 kg Intake: Tube Feeding 660 290 Other 600 Other: # Voids 5 3 # Bowel Movements 1 Stool Characteristics Soft Formed Weight Source Bedscale Bedscale Active Medications: Current Medications Acetaminophen (Tylenol 650mg/20.3ml Suspension) 650 mg GT Q6H PRN PRN Reason: Pain (Mild) Ascorbic Acid (Vitamin C) 500 mg GT DAILY [facility] Stop: 01/17/18 08:59 Last Admin: 11/20/17 08:43 Dose: 500 mg Bisacodyl (Dulcolax 10 Mg Supp) 10 mg RC DAILY PRN PRN Reason: Constipation Stop: 01/16/18 22:18 [place] Oil/Belarusian Balsam/Trypsin (Venelex) 1 appl TP DAILY [facility] Stop: 01/18/18 08:59 Last Admin: 11/20/17 08:46 Dose: 1 appl Divalproex Sodium (Depakote Sprinkle) 125 mg GT TID [facility]; Protocol Stop: 01/17/18 10:59 Last Admin: 11/20/17 08:44 Dose: 125 mg Docusate Sodium (Colace) 100 mg GT DAILY [facility] Stop: 01/17/18 08:59 Last Admin: 11/20/17 08:44 Dose: 100 mg Sodium Chloride (Nacl 0.9%) 1,000 mls @ 75 mls/hr IV .[id number] [facility] Stop: 01/17/18 09:59 Last Admin: 11/19/17 06:55 Dose: 75 mls/hr Levofloxacin (Levaquin Pb) 500 mg in 100 mls @ 100 mls/hr IV Q24HR [facility] Stop: 01/17/18 20:59 Last Admin: 11/20/17 05:34 Dose: Not Given Lactobacillus Rhamnosus (Culturelle 15b) 1 each PO DAILY [facility] Stop: 01/18/18 13:59 Last Admin: 11/20/17 08:45 Dose: 1 each Levothyroxine Sodium (Synthroid) 0.075 mg PO QDAC [facility] Stop: 01/17/18 07:29 Last Admin: 11/20/17 06:41 Dose: 0.075 mg Lorazepam (Ativan) 0.5 mg PO Q6H PRN; Protocol PRN Reason: Agitation Stop: 01/17/18 09:04 Last Admin: 11/20/17 06:04 Dose: 0.5 mg Miscellaneous (Probiotic Screen) 1 ea MC PRN PRN PRN Reason: PROTOCOL Stop: 01/18/18 11:34 Mupirocin (Bactroban Oint) 1 appl NS BID [facility] Stop: 11/23/17 09:01 Last Admin: 11/20/17 08:46 Dose: 1 appl Ondansetron HCl (Zofran Odt) 4 mg SL Q6HR PRN PRN Reason: Nausea Stop: 01/16/18 22:18 Quetiapine Fumarate (Seroquel) 100 mg GT BID [facility] Stop: 01/19/18 08:59 Last Admin: 11/20/17 08:45 Dose: 100 mg Zinc Sulfate (Zinc Sulfate) 220 mg GT DAILY [facility] Stop: 01/17/18 08:59 Last Admin: 11/20/17 08:45 Dose: 220 mg General: Alert, Other (Confused and agressive at moments) HEENT: Atraumatic Neck: Supple Cardiovascular: Regular rate Lungs: Clear to auscultation Abdomen: Bowel sounds, Soft Extremities: Other (No edema) Neurological: Other (Non ambulatory) Skin: Other (Decubit ulcers in thoracic and hip area) Psych/Mental Status: Other (Patient is confused) - Procedures Procedures: Procedures Procedure Code Date EXCISION OF BACK SUBCU/FASCIA, OPEN APPROACH [id number] 11/17/17 EXCISION OF PELVIC SUBCU/FASCIA, OPEN APPROACH [id number] 11/17/17 Nutritional Asmnt/Malnutr-PDOC - Dietary Evaluation Malnutrition Findings (Please click <Entered> for more info): Nutritional Asmnt/Malnutrition Start: 11/18/17 14: 31 Text: Status: Complete Freq: Protocol: Document 11/18/17 14:31 LCHENG (Rec: 11/18/17 15:02 LCHENG [email or web address]) Nutritional Asmnt/Malnutrition Patient General Information Nutritional Screening High Risk Diagnosis dehydration Pertinent Medical Hx/Surgical Hx thyroid, Gtube placement, bipolar, anxiety, schizophrenia Subjective Information Pt admitted with Gtube and multiple wounds. Per nurse note, pt may have surgical procedure for excisional debridement decubitus ulcers, wait for consent. Current Diet Order/ Nutrition Support Jevity 1.2 237ml x 4 daily Pertinent Medications vit C, colace, synthroid, seroquel, nacl 0.9%, zinc Pertinent Labs 11/18 Na 135, Cr 0.5 Nutritional Hx/Data Height 1.68 m Height (Calculated Centimeters) 167.6 Current Weight (lbs) 48.534 kg Weight (Calculated Kilograms) 48.5 Weight (Calculated Grams) 32218.4 [place] Body Weight 142 Body Mass Index (BMI) 17.2 Weight Status Underweight GI Symptoms GI Symptoms None Last BM none Difficult in: None Usual diet at home jevity 1.2 237ml x 4 daily at care facility per chart Skin Integrity/Comment: pressure area reddened to coccyx and ulceration to upper back Estimated Nutritional Goals BEE in Kcals: Using Current wt Calories/Kcals/Kg 25-30 Kcals Calculated 5439-3489 Protein: Using Current wt Protein g/k.2-1.4 Protein Calculated 59-69 Fluid: ml 1470-1715ml (1ml/kcal) Nutritional Problem 2. Problem Problem inadequate intake from enteral feeding Etiology bolus feeding not meeting 100% of nutritional needs Signs/Symptoms: bolus feeding only provide 1138kcal and 53g protein 1. Problem Problem increased nutrition needs Etiology impaired skin integrity and underweight Signs/Symptoms: ulcer/wounds, BMI 17.3 Intervention/Recommendation Comments 1. Recommend increased bolus feeding to 235ml x 5 times daily. This will provide 1422kcal, 66g protein, 956ml free water, meeting 100% of nutritional needs 2. Monitor TF tolerance, wt, skin integrity and labs 3. F/U as high risk in 2-3 days, 11/20-11/21 Expected Outcomes/Goals Expected Outcomes/Goals 1. Pt to meet at least 75% of nutritional needs via nutrition support with tolerance 2. Wt stability, skin integrity to improve, labs to approach WNL.
--- NOTE | 2017-11-20 22:21 | Progress Notes ---
DATE: 11/20/2017 SUBJECTIVE: Staff was spoken to. The patient is interviewed. Mood is noted to be less irritable. The patient has been still closely monitored for his aggressive behavior. The patient is currently on Seroquel and has been able to tolerate the medication. ASSESSMENT: The patient is still impulsive and agitated. PLAN: To continue the patient with the Seroquel and followup. JOB# [id number]
--- NOTE | 2017-11-21 09:06 | Discharge Summary ---
General Discharge Summary - Discharge Summary Date of Admission: 11/18/17 Discharge Date: 11/21/17 Disposition: Other Care w/in this hosp Home Medications: Home Medication Medication Instructions Recorded Type Acetaminophen [Mapap] 30 ml GT Q6H PRN 11/17/17 History Alprazolam 1 tab GT Q6H PRN 11/17/17 History Ascorbic Acid [Vitamin C] 500 mg GT DAILY 11/17/17 History Bisacodyl 10 mg RC DAILY PRN 11/17/17 History Collagenase Clostridium Hist. 1 appl TP Q72HR 11/17/17 History [Santyl] Divalproex DR [Depakote DR] 125 mg GT TID 11/17/17 History Docusate Sodium [Colace] 100 mg GT DAILY 11/17/17 History Hyoscyamine Sulfate [Levsin-Sl] 1 - 2 mg SL Q4H PRN 11/17/17 History Levothyroxine [Synthroid] 0.075 mg PO QDAC 11/17/17 History Lorazepam [Ativan] 2 mg GT Q6HR PRN 11/17/17 History Midodrine [Proamatine] 10 mg GT Q6HR 11/17/17 History Morphine Sulfate 0.5 ml PO Q2HR PRN 11/17/17 History Ondansetron [Zofran ODT] 4 mg PO Q6HR PRN 11/17/17 History Ppd [Tubersol] 0.1 ml ID QPM 11/17/17 History Protein Supplement [Promod 946 ml] 30 ml GT DAILY 11/17/17 History QUEtiapine Fumarate [SEROquel] 125 mg GT BID 11/17/17 History Zinc Sulfate 220 mg GT DAILY 11/17/17 History Inpatient Medications: Current Medications Acetaminophen (Tylenol 650mg/20.3ml Suspension) 650 mg GT Q6H PRN PRN Reason: Pain (Mild) Ascorbic Acid (Vitamin C) 500 mg GT DAILY [facility] Stop: 01/17/18 08:59 Last Admin: 11/20/17 08:43 Dose: 500 mg Bisacodyl (Dulcolax 10 Mg Supp) 10 mg RC DAILY PRN PRN Reason: Constipation Stop: 01/16/18 22:18 [place] Oil/[place] Balsam/Trypsin (Venelex) 1 appl TP DAILY [facility] Stop: 01/18/18 08:59 Last Admin: 11/20/17 08:46 Dose: 1 appl Divalproex Sodium (Depakote Sprinkle) 125 mg GT TID [facility]; Protocol Stop: 01/17/18 10:59 Last Admin: 11/20/17 21:18 Dose: 125 mg Docusate Sodium (Colace) 100 mg GT DAILY [facility] Stop: 01/17/18 08:59 Last Admin: 11/20/17 08:44 Dose: 100 mg Sodium Chloride (Nacl 0.9%) 1,000 mls @ 75 mls/hr IV .[id number] [facility] Stop: 01/17/18 09:59 Last Admin: 11/19/17 06:55 Dose: 75 mls/hr Levofloxacin (Levaquin Pb) 500 mg in 100 mls @ 100 mls/hr IV Q24HR [facility] Stop: 01/17/18 20:59 Last Infusion: 11/21/17 05:55 Dose: Infused Lactobacillus Rhamnosus (Culturelle 15b) 1 each PO DAILY [facility] Stop: 01/18/18 13:59 Last Admin: 11/20/17 08:45 Dose: 1 each Levothyroxine Sodium (Synthroid) 0.075 mg PO QDAC [facility] Stop: 01/17/18 07:29 Last Admin: 11/20/17 06:41 Dose: 0.075 mg Lorazepam (Ativan) 0.5 mg PO Q6H PRN; Protocol PRN Reason: Agitation Stop: 01/17/18 09:04 Last Admin: 11/20/17 06:04 Dose: 0.5 mg Miscellaneous (Probiotic Screen) 1 ea MC PRN PRN PRN Reason: PROTOCOL Stop: 01/18/18 11:34 Mupirocin (Bactroban Oint) 1 appl NS BID [facility] Stop: 11/23/17 09:01 Last Admin: 11/20/17 17:57 Dose: 1 appl Ondansetron HCl (Zofran Odt) 4 mg SL Q6HR PRN PRN Reason: Nausea Stop: 01/16/18 22:18 Quetiapine Fumarate (Seroquel) 100 mg GT BID [facility] Stop: 01/19/18 08:59 Last Admin: 11/20/17 17:57 Dose: 100 mg Zinc Sulfate (Zinc Sulfate) 220 mg GT DAILY [facility] Stop: 01/17/18 08:59 Last Admin: 11/20/17 08:45 Dose: 220 mg Consults and Follow-Up: JASON JIMENEZ [Other] not on staff,PCP is [Primary Care Provider] -
[2017-11-21] MEDS: Lactobacillus Rhamnosus GG 15 Billion CFU CAP.SPRINK PO SCH (09:46)
[2017-11-21] MEDS: Venelex 60gm Tube TP SCH (09:54)
[2017-11-21] MEDS: Docusate Sodium 100 mg/10 mL UD GT SCH (09:55)
[2017-11-21] MEDS: Levothyroxine 0.075 Mg Tab PO SCH (10:14)
--- NOTE | 2017-11-21 11:34 | Pathology Report ---
[id number] Collection date: 11/19/2017 Surgeon: Dr. Freida Obrien Specimen Description: Debrided tissue from back. Gross Description: Received in formalin are multiple irregular sanchez-downing degenerated skin tissue fragments ranging from 0.8 to 3.0 cm in greatest dimension, with the largest portion having an elliptical shape measuring 3 x 2 x 0.5 cm. There is cutaneous ulceration and degeneration seen throughout the entire specimen. Bridge Inspector sections are submitted in one cassette. Microscopic Description: The histologic sections show ulcerated skin and subcutaneous tissue with extensive suppurative inflammation present, consisting of large collections of neutrophils within a necrotic background. Diagnosis: Ulcerated necrotic tissue consistent with debridement, decubitus ulcer. [facility]# [id number] [facility] CENTERAddis
[2017-11-21] MEDS: Sodium Chloride 0.9% 1,000 ML IV SCH (16:28)
[2017-11-21] MEDS: Levofloxacin 500mg/100mL 500 MG/100 ML BAG IV SCH (21:47)
--- NOTE | 2017-11-22 04:29 | Progress Notes ---
DATE: 11/21/2017 SUBJECTIVE: Staff was spoken to. The patient is interviewed. Mood is noted to be irritable. Affect is constricted. The patient is still trying to be or aggressive. The patient has no insight into his illness. Coping skills are noted to be very poor. The patient is currently on the valproic acid 125 mg 3 times a day and Seroquel 100 mg twice a day. Even with these medications, the patient has been having difficult time to cope with the stress. The patient is not ready to be discharged to a lower level of care yet in view of his acute agitation and aggressive behavior. JOB# [id number]
[2017-11-22] MEDS: Levothyroxine 0.075 Mg Tab PO SCH (06:44)
[2017-11-22] MEDS: Docusate Sodium 100 mg/10 mL UD GT SCH (08:44)
[2017-11-22] MEDS: Lactobacillus Rhamnosus GG 15 Billion CFU CAP.SPRINK PO SCH (08:45)
[2017-11-22] MEDS: Venelex 60gm Tube TP SCH (08:46)
--- NOTE | 2017-11-22 09:09 | General Progress Note ---
Subjective - Review of Systems Service Date: 11/22/17 Subjective: Patient confused, agitated at moments Objective - Results Result Diagrams: 11/20/17 05:45 11/20/17 05:45 Recent Labs: Laboratory Last Values WBC 9.9 Th/cmm (4.8-10.8) 11/20/17 05:45 RBC 4.12 Mil/cmm (3.80-5.80) 11/20/17 05:45 Hgb 13.0 gm/dL (12-16) 11/20/17 05:45 Hct 38.7 % (41.0-60) L 11/20/17 05:45 MCV 93.7 fl (80-99) 11/20/17 05:45 MCH 31.5 pg (27.0-31.0) H 11/20/17 05:45 MCHC Differential 33.6 pg (28.0-36.0) 11/20/17 05:45 RDW 13.8 % (11.5-20.0) 11/20/17 05:45 Plt Count 310 Th/cmm (150-400) 11/20/17 05:45 MPV 9.4 fl 11/20/17 05:45 Neutrophils % 70.1 % (40.0-80.0) 11/20/17 05:45 Lymphocytes % 19.6 % (20.0-50.0) L 11/20/17 05:45 Monocytes % 7.9 % (2.0-10.0) 11/20/17 05:45 Eosinophils % 2.0 % (0.0-5.0) 11/20/17 05:45 Basophils % 0.4 % (0.0-2.0) 11/20/17 05:45 Sodium 135 mEq/L (136-145) L 11/20/17 05:45 Potassium 4.5 mEq/L (3.5-5.1) 11/20/17 05:45 Chloride 101 mEq/L (98-107) 11/20/17 05:45 Carbon Dioxide 26.7 mEq/L (21.0-31.0) 11/20/17 05:45 Anion Gap 11.8 (7.0-16.0) 11/20/17 05:45 BUN 8 mg/dL (7-25) 11/20/17 05:45 Creatinine 0.5 mg/dL (0.7-1.3) L 11/20/17 05:45 Est GFR ( Amer) TNP 11/20/17 05:45 Est GFR (Non-Af Amer) TNP 11/20/17 05:45 BUN/Creatinine Ratio 16.0 11/20/17 05:45 Glucose 95 mg/dL (70-105) 11/20/17 05:45 POC Glucose 79 MG/DL (70 - 105) 11/19/17 06:25 Calcium 9.0 mg/dL (8.6-10.3) 11/20/17 05:45 Phosphorus 2.8 mg/dL (2.5-5.0) 11/17/17 17:35 Magnesium 1.7 mg/dL (1.9-2.7) L 11/17/17 17:35 Total Bilirubin 0.4 mg/dL (0.3-1.0) 11/20/17 05:45 AST 18 U/L (13-39) 11/20/17 05:45 ALT 11 U/L (7-52) 11/20/17 05:45 Alkaline Phosphatase 71 U/L (34-104) 11/20/17 05:45 Total Protein 6.7 gm/dL (6.0-8.3) 11/20/17 05:45 Albumin 3.1 gm/dL (4.2-5.5) L 11/20/17 05:45 Globulin 3.6 gm/dL 11/20/17 05:45 Albumin/Globulin Ratio 0.9 (1.0-1.8) L 11/20/17 05:45 TSH 15.54 uIU/ml (0.34-5.60) H 11/17/17 17:35 Urine Source CLEAN C 11/18/17 17:30 Urine Color YELLOW 11/18/17 17:30 Urine Clarity HAZY (CLEAR) 11/18/17 17:30 Urine pH 6.0 (4.6 - 8.0) 11/18/17 17:30 Ur Specific [place] 1.020 (1.005-1.030) 11/18/17 17:30 Urine Protein NEGATIVE mg/dL (NEGATIVE) 11/18/17 17:30 Urine Glucose (UA) NEGATIVE mg/dL (NEGATIVE) 11/18/17 17:30 Urine Ketones NEGATIVE mg/dL (NEGATIVE) 11/18/17 17:30 Urine Blood NEGATIVE (NEGATIVE) 11/18/17 17:30 Urine Nitrate POSITIVE (NEGATIVE) H 11/18/17 17:30 Urine Bilirubin NEGATIVE (NEGATIVE) 11/18/17 17:30 Urine Urobilinogen 0.2 E.U./dL (0.2 - 1.0) 11/18/17 17:30 Ur Leukocyte Esterase TRACE (NEGATIVE) H 11/18/17 17:30 Urine RBC 0-2 /hpf (0-5) H 11/18/17 17:30 Urine WBC 2-5 /hpf (0-5) 11/18/17 17:30 Ur Epithelial Cells FEW /lpf (FEW) 11/18/17 17:30 Urine Bacteria 3+ /hpf (NONE SEEN) H 11/18/17 17:30 Urine Opiates Screen NEGATIVE (NEGATIVE) 11/18/17 17:30 Urine Methadone Screen NEGATIVE (NEGATIVE) 11/18/17 17:30 Ur Barbiturates Screen NEGATIVE (NEGATIVE) 11/18/17 17:30 Valproic Acid 19.8 ug/mL (50.0-100.0) L 11/17/17 17:26 Ur Tricyclics Screen POSITIVE (NEGATIVE) H 11/18/17 17:30 Ur Phencyclidine Scrn NEGATIVE (NEGATIVE) 11/18/17 17:30 Amphetamines Screen NEGATIVE (NEGATIVE) 11/18/17 17:30 U Methamphetamines Scrn NEGATIVE (NEGATIVE) 11/18/17 17:30 U Benzodiazepines Scrn POSITIVE (NEGATIVE) H 11/18/17 17:30 U Cocaine Metab Screen NEGATIVE (NEGATIVE) 11/18/17 17:30 U Cannabinoids Screen NEGATIVE (NEGATIVE) 11/18/17 17:30 - Physical Exam Vitals and I&O: Vital Signs Temp 97.5 F 11/22/17 04:00 Pulse 101 11/22/17 04:00 Resp 17 11/22/17 04:00 BP 113/75 11/22/17 04:00 Pulse Ox 97 11/22/17 04:00 Intake & Output 11/21/17 11/22/17 11/22/17 18:59 06:59 18:59 Intake Total 980 Balance 980 Weight (lbs) 52.645 kg Intake: Intake, IV Amount 100 Levofloxacin 500mg/100mL 100 500 mg In 100 ml @ 100 mls/hr IV Q24HR [facility] Rx#: [id number] Oral 0 Tube Feeding 580 Other 300 Other: # Voids 3 # Bowel Movements 2 Stool Characteristics Soft Soft Liquid Liquid Brown Brown Weight Source Bedscale Active Medications: Current Medications Acetaminophen (Tylenol 650mg/20.3ml Suspension) 650 mg GT Q6H PRN PRN Reason: Pain (Mild) Last Admin: 11/21/17 09:47 Dose: 650 mg Ascorbic Acid (Vitamin C) 500 mg GT DAILY [facility] Stop: 01/17/18 08:59 Last Admin: 11/22/17 08:45 Dose: 500 mg Bisacodyl (Dulcolax 10 Mg Supp) 10 mg RC DAILY PRN PRN Reason: Constipation Stop: 01/16/18 22:18 [place] Oil/[place] Balsam/Trypsin (Venelex) 1 appl TP DAILY [facility] Stop: 01/18/18 08:59 Last Admin: 11/22/17 08:46 Dose: 1 appl Divalproex Sodium (Depakote Sprinkle) 125 mg GT TID [facility]; Protocol Stop: 01/17/18 10:59 Last Admin: 11/22/17 08:45 Dose: 125 mg Docusate Sodium (Colace) 100 mg GT DAILY [facility] Stop: 01/17/18 08:59 Last Admin: 11/22/17 08:44 Dose: 100 mg Sodium Chloride (Nacl 0.9%) 1,000 mls @ 75 mls/hr IV .[id number] [facility] Stop: 01/17/18 09:59 Last Admin: 11/21/17 16:28 Dose: 75 mls/hr Levofloxacin (Levaquin Pb) 500 mg in 100 mls @ 100 mls/hr IV Q24HR [facility] Stop: 01/17/18 20:59 Last Infusion: 11/22/17 06:45 Dose: Infused Lactobacillus Rhamnosus (Culturelle 15b) 1 each PO DAILY [facility] Stop: 01/18/18 13:59 Last Admin: 11/22/17 08:45 Dose: 1 each Levothyroxine Sodium (Synthroid) 0.075 mg PO QDAC [facility] Stop: 01/17/18 07:29 Last Admin: 11/22/17 06:44 Dose: 0.075 mg Lorazepam (Ativan) 0.5 mg PO Q6H PRN; Protocol PRN Reason: Agitation Stop: 01/17/18 09:04 Last Admin: 11/22/17 08:51 Dose: 0.5 mg Miscellaneous (Probiotic Screen) 1 ea MC PRN PRN PRN Reason: PROTOCOL Stop: 01/18/18 11:34 Mupirocin (Bactroban Oint) 1 appl NS BID [facility] Stop: 11/23/17 09:01 Last Admin: 11/22/17 08:46 Dose: 1 appl Ondansetron HCl (Zofran Odt) 4 mg SL Q6HR PRN PRN Reason: Nausea Stop: 01/16/18 22:18 Quetiapine Fumarate (Seroquel) 100 mg GT BID [facility] Stop: 01/19/18 08:59 Last Admin: 11/22/17 08:45 Dose: 100 mg Zinc Sulfate (Zinc Sulfate) 220 mg GT DAILY [facility] Stop: 01/17/18 08:59 Last Admin: 11/22/17 08:45 Dose: 220 mg General: Alert, Other (Confused and agressive at moments) HEENT: Atraumatic Neck: Supple Cardiovascular: Regular rate Lungs: Clear to auscultation Abdomen: Bowel sounds, Soft Extremities: Other (No edema) Neurological: Other (Non ambulatory) Skin: Other (Decubit ulcers in thoracic and hip area) Psych/Mental Status: Other (Patient is confused) - Procedures Procedures: Procedures Procedure Code Date EXCISION OF BACK SUBCU/FASCIA, OPEN APPROACH [id number] 11/17/17 EXCISION OF PELVIC SUBCU/FASCIA, OPEN APPROACH [id number] 11/17/17 Assessment/Plan - Assessment Assessment: Patient is awake, agitated at moments. UA shows UTI. Patient was discharge yesterday but was not send to the SNF. Dx: Increased in agitation, Dehydration, Hypotension, Failure to trieve, Decubit ulcer in thoracic area and hip area, COPD, Schizophrenia, Bipolar, Dysphagia, UTI. - Plan Plan: Patient is in IV NS continue with SNF meds,Started in IV AB. Wound was debrided yesterday. Patient improving. will continue to monitor. Nutritional Asmnt/Malnutr-PDOC - Dietary Evaluation Malnutrition Findings (Please click <Entered> for more info): Nutritional Asmnt/Malnutrition Start: 11/18/17 14: 31 Text: Status: Complete Freq: Protocol: Document 11/18/17 14:31 RADHIKA (Rec: 11/18/17 15:02 DAGOBERTOANNA [email or web address]) Nutritional Asmnt/Malnutrition Patient General Information Nutritional Screening High Risk Diagnosis dehydration Pertinent Medical Hx/Surgical Hx thyroid, Gtube placement, bipolar, anxiety, schizophrenia Subjective Information Pt admitted with Gtube and multiple wounds. Per nurse note, pt may have surgical procedure for excisional debridement decubitus ulcers, wait for consent. Current Diet Order/ Nutrition Support Jevity 1.2 237ml x 4 daily Pertinent Medications vit C, colace, synthroid, seroquel, nacl 0.9%, zinc Pertinent Labs 11/18 Na 135, Cr 0.5 Nutritional Hx/Data Height 1.68 m Height (Calculated Centimeters) 167.6 Current Weight (lbs) 48.534 kg Weight (Calculated Kilograms) 48.5 Weight (Calculated Grams) 96266.4 [place] Body Weight 142 Body Mass Index (BMI) 17.2 Weight Status Underweight GI Symptoms GI Symptoms None Last BM none Difficult in: None Usual diet at home jevity 1.2 237ml x 4 daily at care facility per chart Skin Integrity/Comment: pressure area reddened to coccyx and ulceration to upper back Estimated Nutritional Goals BEE in Kcals: Using Current wt Calories/Kcals/Kg 25-30 Kcals Calculated 1109-4117 Protein: Using Current wt Protein g/k.2-1.4 Protein Calculated 59-69 Fluid: ml 1470-1715ml (1ml/kcal) Nutritional Problem 2. Problem Problem inadequate intake from enteral feeding Etiology bolus feeding not meeting 100% of nutritional needs Signs/Symptoms: bolus feeding only provide 1138kcal and 53g protein 1. Problem Problem increased nutrition needs Etiology impaired skin integrity and underweight Signs/Symptoms: ulcer/wounds, BMI 17.3 Intervention/Recommendation Comments 1. Recommend increased bolus feeding to 235ml x 5 times daily. This will provide 1422kcal, 66g protein, 956ml free water, meeting 100% of nutritional needs 2. Monitor TF tolerance, wt, skin integrity and labs 3. F/U as high risk in 2-3 days, 11/20-11/21 Expected Outcomes/Goals Expected Outcomes/Goals 1. Pt to meet at least 75% of nutritional needs via nutrition support with tolerance 2. Wt stability, skin integrity to improve, labs to approach WNL.
[2017-11-22] MEDS: Levofloxacin 500mg/100mL 500 MG/100 ML BAG IV SCH (20:41)
[2017-11-23] MEDS: Levothyroxine 0.075 Mg Tab PO SCH (06:56)
[2017-11-23] MEDS: Docusate Sodium 100 mg/10 mL UD GT SCH (08:23)
[2017-11-23] MEDS: Lactobacillus Rhamnosus GG 15 Billion CFU CAP.SPRINK PO SCH (08:23)
--- NOTE | 2017-11-23 09:16 | General Progress Note ---
Subjective - Review of Systems Service Date: 11/23/17 Subjective: Patient confused, agitated at moments. Objective - Results Result Diagrams: 11/20/17 05:45 11/20/17 05:45 Recent Labs: Laboratory Last Values WBC 9.9 Th/cmm (4.8-10.8) 11/20/17 05:45 RBC 4.12 Mil/cmm (3.80-5.80) 11/20/17 05:45 Hgb 13.0 gm/dL (12-16) 11/20/17 05:45 Hct 38.7 % (41.0-60) L 11/20/17 05:45 MCV 93.7 fl (80-99) 11/20/17 05:45 MCH 31.5 pg (27.0-31.0) H 11/20/17 05:45 MCHC Differential 33.6 pg (28.0-36.0) 11/20/17 05:45 RDW 13.8 % (11.5-20.0) 11/20/17 05:45 Plt Count 310 Th/cmm (150-400) 11/20/17 05:45 MPV 9.4 fl 11/20/17 05:45 Neutrophils % 70.1 % (40.0-80.0) 11/20/17 05:45 Lymphocytes % 19.6 % (20.0-50.0) L 11/20/17 05:45 Monocytes % 7.9 % (2.0-10.0) 11/20/17 05:45 Eosinophils % 2.0 % (0.0-5.0) 11/20/17 05:45 Basophils % 0.4 % (0.0-2.0) 11/20/17 05:45 Sodium 135 mEq/L (136-145) L 11/20/17 05:45 Potassium 4.5 mEq/L (3.5-5.1) 11/20/17 05:45 Chloride 101 mEq/L (98-107) 11/20/17 05:45 Carbon Dioxide 26.7 mEq/L (21.0-31.0) 11/20/17 05:45 Anion Gap 11.8 (7.0-16.0) 11/20/17 05:45 BUN 8 mg/dL (7-25) 11/20/17 05:45 Creatinine 0.5 mg/dL (0.7-1.3) L 11/20/17 05:45 Est GFR ( Amer) TNP 11/20/17 05:45 Est GFR (Non-Af Amer) TNP 11/20/17 05:45 BUN/Creatinine Ratio 16.0 11/20/17 05:45 Glucose 95 mg/dL (70-105) 11/20/17 05:45 POC Glucose 79 MG/DL (70 - 105) 11/19/17 06:25 Calcium 9.0 mg/dL (8.6-10.3) 11/20/17 05:45 Phosphorus 2.8 mg/dL (2.5-5.0) 11/17/17 17:35 Magnesium 1.7 mg/dL (1.9-2.7) L 11/17/17 17:35 Total Bilirubin 0.4 mg/dL (0.3-1.0) 11/20/17 05:45 AST 18 U/L (13-39) 11/20/17 05:45 ALT 11 U/L (7-52) 11/20/17 05:45 Alkaline Phosphatase 71 U/L (34-104) 11/20/17 05:45 Total Protein 6.7 gm/dL (6.0-8.3) 11/20/17 05:45 Albumin 3.1 gm/dL (4.2-5.5) L 11/20/17 05:45 Globulin 3.6 gm/dL 11/20/17 05:45 Albumin/Globulin Ratio 0.9 (1.0-1.8) L 11/20/17 05:45 TSH 15.54 uIU/ml (0.34-5.60) H 11/17/17 17:35 Urine Source CLEAN C 11/18/17 17:30 Urine Color YELLOW 11/18/17 17:30 Urine Clarity HAZY (CLEAR) 11/18/17 17:30 Urine pH 6.0 (4.6 - 8.0) 11/18/17 17:30 Ur Specific [place] 1.020 (1.005-1.030) 11/18/17 17:30 Urine Protein NEGATIVE mg/dL (NEGATIVE) 11/18/17 17:30 Urine Glucose (UA) NEGATIVE mg/dL (NEGATIVE) 11/18/17 17:30 Urine Ketones NEGATIVE mg/dL (NEGATIVE) 11/18/17 17:30 Urine Blood NEGATIVE (NEGATIVE) 11/18/17 17:30 Urine Nitrate POSITIVE (NEGATIVE) H 11/18/17 17:30 Urine Bilirubin NEGATIVE (NEGATIVE) 11/18/17 17:30 Urine Urobilinogen 0.2 E.U./dL (0.2 - 1.0) 11/18/17 17:30 Ur Leukocyte Esterase TRACE (NEGATIVE) H 11/18/17 17:30 Urine RBC 0-2 /hpf (0-5) H 11/18/17 17:30 Urine WBC 2-5 /hpf (0-5) 11/18/17 17:30 Ur Epithelial Cells FEW /lpf (FEW) 11/18/17 17:30 Urine Bacteria 3+ /hpf (NONE SEEN) H 11/18/17 17:30 Urine Opiates Screen NEGATIVE (NEGATIVE) 11/18/17 17:30 Urine Methadone Screen NEGATIVE (NEGATIVE) 11/18/17 17:30 Ur Barbiturates Screen NEGATIVE (NEGATIVE) 11/18/17 17:30 Valproic Acid 19.8 ug/mL (50.0-100.0) L 11/17/17 17:26 Ur Tricyclics Screen POSITIVE (NEGATIVE) H 11/18/17 17:30 Ur Phencyclidine Scrn NEGATIVE (NEGATIVE) 11/18/17 17:30 Amphetamines Screen NEGATIVE (NEGATIVE) 11/18/17 17:30 U Methamphetamines Scrn NEGATIVE (NEGATIVE) 11/18/17 17:30 U Benzodiazepines Scrn POSITIVE (NEGATIVE) H 11/18/17 17:30 U Cocaine Metab Screen NEGATIVE (NEGATIVE) 11/18/17 17:30 U Cannabinoids Screen NEGATIVE (NEGATIVE) 11/18/17 17:30 - Physical Exam Vitals and I&O: Vital Signs Temp 97.4 F 11/23/17 07:47 Pulse 97 11/23/17 07:47 Resp 17 11/23/17 07:47 BP 107/68 11/23/17 07:47 Pulse Ox 98 11/23/17 07:47 Intake & Output 11/22/17 11/23/17 11/23/17 18:59 06:59 18:59 Intake Total 1060 100 700 Balance 1060 100 700 Weight (lbs) 52.872 kg 51.982 kg 51.982 kg Intake: Intake, IV Amount 100 Levofloxacin 500mg/100mL 100 500 mg In 100 ml @ 100 mls/hr IV Q24HR [facility] Rx#: [id number] Tube Feeding 580 Other 480 700 Other: # Voids 2 2 3 # Bowel Movements 1 0 0 Stool Characteristics Soft Liquid Brown Weight Source Bedscale Bedscale Bedscale Active Medications: Current Medications Acetaminophen (Tylenol 650mg/20.3ml Suspension) 650 mg GT Q6H PRN PRN Reason: Pain (Mild) Last Admin: 11/21/17 09:47 Dose: 650 mg Ascorbic Acid (Vitamin C) 500 mg GT DAILY [facility] Stop: 01/17/18 08:59 Last Admin: 11/23/17 08:23 Dose: 500 mg Bisacodyl (Dulcolax 10 Mg Supp) 10 mg RC DAILY PRN PRN Reason: Constipation Stop: 01/16/18 22:18 [place] Oil/[place] Balsam/Trypsin (Venelex) 1 appl TP DAILY [facility] Stop: 01/18/18 08:59 Last Admin: 11/22/17 08:46 Dose: 1 appl Divalproex Sodium (Depakote Sprinkle) 125 mg GT TID [facility]; Protocol Stop: 01/17/18 10:59 Last Admin: 11/23/17 08:23 Dose: 125 mg Docusate Sodium (Colace) 100 mg GT DAILY [facility] Stop: 01/17/18 08:59 Last Admin: 11/23/17 08:23 Dose: 100 mg Sodium Chloride (Nacl 0.9%) 1,000 mls @ 75 mls/hr IV .[id number] [facility] Stop: 01/17/18 09:59 Last Admin: 11/21/17 16:28 Dose: 75 mls/hr Levofloxacin (Levaquin Pb) 500 mg in 100 mls @ 100 mls/hr IV Q24HR [facility] Stop: 01/17/18 20:59 Last Infusion: 11/22/17 21:50 Dose: Infused Lactobacillus Rhamnosus (Culturelle 15b) 1 each PO DAILY [facility] Stop: 01/18/18 13:59 Last Admin: 11/23/17 08:23 Dose: 1 each Levothyroxine Sodium (Synthroid) 0.075 mg PO QDAC [facility] Stop: 01/17/18 07:29 Last Admin: 11/23/17 06:56 Dose: 0.075 mg Lorazepam (Ativan) 0.5 mg PO Q6H PRN; Protocol PRN Reason: Agitation Stop: 01/17/18 09:04 Last Admin: 11/22/17 08:51 Dose: 0.5 mg Lorazepam (Ativan) 0.5 mg IVP Q6HR PRN; Protocol PRN Reason: Agitation Stop: 01/21/18 09:21 Last Admin: 11/22/17 12:55 Dose: 0.5 mg Miscellaneous (Probiotic Screen) 1 ea MC PRN PRN PRN Reason: PROTOCOL Stop: 01/18/18 11:34 Ondansetron HCl (Zofran Odt) 4 mg SL Q6HR PRN PRN Reason: Nausea Stop: 01/16/18 22:18 Quetiapine Fumarate (Seroquel) 100 mg GT BID [facility] Stop: 01/19/18 08:59 Last Admin: 11/23/17 08:23 Dose: 100 mg Zinc Sulfate (Zinc Sulfate) 220 mg GT DAILY [facility] Stop: 01/17/18 08:59 Last Admin: 11/22/17 08:45 Dose: 220 mg General: Alert, Other (Confused and agressive at moments) HEENT: Atraumatic Neck: Supple Cardiovascular: Regular rate Lungs: Clear to auscultation Abdomen: Bowel sounds, Soft Extremities: Other (No edema) Neurological: Other (Non ambulatory) Skin: Other (Decubit ulcers in thoracic and hip area) Psych/Mental Status: Other (Patient is confused) - Procedures Procedures: Procedures Procedure Code Date EXCISION OF BACK SUBCU/FASCIA, OPEN APPROACH [id number] 11/17/17 EXCISION OF PELVIC SUBCU/FASCIA, OPEN APPROACH [id number] 11/17/17 Assessment/Plan - Assessment Assessment: Patient is awake, agitated at moments. UA shows UTI. Patient was discharge yesterday but was not send to the SNF. Dx: Increased in agitation, Dehydration, Hypotension, Failure to trieve, Decubit ulcer in thoracic area and hip area, COPD, Schizophrenia, Bipolar, Dysphagia, UTI. - Plan Plan: Patient is in IV NS continue with SNF meds,Started in IV AB. Wound was debrided yesterday. Patient improving. will continue to monitor. Nutritional Asmnt/Malnutr-PDOC - Dietary Evaluation Malnutrition Findings (Please click <Entered> for more info): Nutritional Asmnt/Malnutrition Start: 11/18/17 14: 31 Text: Status: Complete Freq: Protocol: Document 11/18/17 14:31 RADHIKA (Rec: 11/18/17 15:02 DAGOBERTOANNA [email or web address]) Nutritional Asmnt/Malnutrition Patient General Information Nutritional Screening High Risk Diagnosis dehydration Pertinent Medical Hx/Surgical Hx thyroid, Gtube placement, bipolar, anxiety, schizophrenia Subjective Information Pt admitted with Gtube and multiple wounds. Per nurse note, pt may have surgical procedure for excisional debridement decubitus ulcers, wait for consent. Current Diet Order/ Nutrition Support Jevity 1.2 237ml x 4 daily Pertinent Medications vit C, colace, synthroid, seroquel, nacl 0.9%, zinc Pertinent Labs 11/18 Na 135, Cr 0.5 Nutritional Hx/Data Height 1.68 m Height (Calculated Centimeters) 167.6 Current Weight (lbs) 48.534 kg Weight (Calculated Kilograms) 48.5 Weight (Calculated Grams) 59877.4 [place] Body Weight 142 Body Mass Index (BMI) 17.2 Weight Status Underweight GI Symptoms GI Symptoms None Last BM none Difficult in: None Usual diet at home jevity 1.2 237ml x 4 daily at care facility per chart Skin Integrity/Comment: pressure area reddened to coccyx and ulceration to upper back Estimated Nutritional Goals BEE in Kcals: Using Current wt Calories/Kcals/Kg 25-30 Kcals Calculated 9100-9586 Protein: Using Current wt Protein g/k.2-1.4 Protein Calculated 59-69 Fluid: ml 1470-1715ml (1ml/kcal) Nutritional Problem 2. Problem Problem inadequate intake from enteral feeding Etiology bolus feeding not meeting 100% of nutritional needs Signs/Symptoms: bolus feeding only provide 1138kcal and 53g protein 1. Problem Problem increased nutrition needs Etiology impaired skin integrity and underweight Signs/Symptoms: ulcer/wounds, BMI 17.3 Intervention/Recommendation Comments 1. Recommend increased bolus feeding to 235ml x 5 times daily. This will provide 1422kcal, 66g protein, 956ml free water, meeting 100% of nutritional needs 2. Monitor TF tolerance, wt, skin integrity and labs 3. F/U as high risk in 2-3 days, 11/20-11/21 Expected Outcomes/Goals Expected Outcomes/Goals 1. Pt to meet at least 75% of nutritional needs via nutrition support with tolerance 2. Wt stability, skin integrity to improve, labs to approach WNL.
--- NOTE | 2017-11-23 10:55 | Progress Notes ---
DATE: 11/23/2017 SUBJECTIVE: Staff was spoken to. The patient is interviewed. Mood is noted to be irritable. Affect is constricted. Coping skills are noted to be very poor. The patient has paranoia trying to pull the G-tube out. Insight and judgment are noted to be very much impaired. Impulse control is noted to be limited. Coping skills are also noted to be limited. ASSESSMENT: The patient is still impulsive. PLAN: To continue the patient with the supportive therapy. Encouraged the patient to verbalize the concerns rather than to act out. [facility]# [id number]
[2017-11-23] MEDS: Sodium Chloride 0.9% 1,000 ML IV SCH (16:43)
[2017-11-23] MEDS: Venelex 60gm Tube TP SCH (16:46)
[2017-11-23] MEDS: Levofloxacin 500mg/100mL 500 MG/100 ML BAG IV SCH (21:37)
[2017-11-24 04:49] LABS: % BASOPHILS 0.9 % (0.0-2.0); % EOSINOPHILS 2.7 % (0.0-5.0); % LYMPHOCYTES 23.7 % (20.0-50.0); % MONOCYTES 8.5 % (2.0-10.0); % NEUTROPHILS 64.2 % (40.0-80.0); BASOPHILE ABSOLUTE 0.1 Th/cumm (0-0.2); EOSINOPHILE ABSOLUTE 0.2 Th/cmm (0.1-0.4); HEMATOCRIT 36.8 % (41.0-60); HEMOGLOBIN 12.5 gm/dL (12-16); LYMPHOCYTE ABSOLUTE 1.9 Th/cmm (1.5-3.0); MEAN CELL VOLUME 95.4 fl (80-99); MEAN CORPUSCULAR HEMOGLOBIN 32.5 pg (27.0-31.0); MEAN PLATELET VOLUME 8.9 fl; MONOCYTE ABSOLUTE 0.7 Th/cmm (0.3-1.0); PLATELET COUNT 344 Th/cmm (150-400); RED BLOOD COUNT 3.85 Mil/cmm (3.80-5.80); RED CELL DISTRIBUTION WIDTH 14.3 % (11.5-20.0); WHITE BLOOD COUNT 7.9 Th/cmm (4.8-10.8)
[2017-11-24 05:08] LABS: ALB/GLOB RATIO 0.9 (1.0-1.8); ALBUMIN 2.8 gm/dL (4.2-5.5); ALKALINE PHOSPHATASE 71 U/L (34-104); ANION GAP 9.4 (7.0-16.0); BILIRUBIN,TOTAL 0.2 mg/dL (0.3-1.0); BUN - UREA NITROGEN 9 mg/dL (7-25); CALCIUM SERUM 8.8 mg/dL (8.6-10.3); CARBON DIOXIDE 28.3 mEq/L (21.0-31.0); CHLORIDE 103 mEq/L (98-107); CREATININE - SERUM 0.5 mg/dL (0.7-1.3); GLUCOSE 84 mg/dL (70-105); POTASSIUM SERUM 4.7 mEq/L (3.5-5.1); SGOT 15 U/L (13-39); SGPT/ALT 9 U/L (7-52); SODIUM SERUM 136 mEq/L (136-145); TOTAL PROTEIN,SERUM 6.1 gm/dL (6.0-8.3)
[2017-11-24] MEDS: Sodium Chloride 0.9% 1,000 ML IV SCH (06:03)
[2017-11-24] MEDS: Levothyroxine 0.075 Mg Tab PO SCH (06:53)
--- NOTE | 2017-11-24 08:39 | General Progress Note ---
Subjective - Review of Systems Service Date: 11/24/17 Subjective: Patient confused, calm Objective - Results Result Diagrams: 11/24/17 04:20 11/24/17 04:20 Recent Labs: Laboratory Last Values WBC 7.9 Th/cmm (4.8-10.8) 11/24/17 04:20 RBC 3.85 Mil/cmm (3.80-5.80) 11/24/17 04:20 Hgb 12.5 gm/dL (12-16) 11/24/17 04:20 Hct 36.8 % (41.0-60) L 11/24/17 04:20 MCV 95.4 fl (80-99) 11/24/17 04:20 MCH 32.5 pg (27.0-31.0) H 11/24/17 04:20 MCHC Differential 34.0 pg (28.0-36.0) 11/24/17 04:20 RDW 14.3 % (11.5-20.0) 11/24/17 04:20 Plt Count 344 Th/cmm (150-400) 11/24/17 04:20 MPV 8.9 fl 11/24/17 04:20 Neutrophils % 64.2 % (40.0-80.0) 11/24/17 04:20 Lymphocytes % 23.7 % (20.0-50.0) 11/24/17 04:20 Monocytes % 8.5 % (2.0-10.0) 11/24/17 04:20 Eosinophils % 2.7 % (0.0-5.0) 11/24/17 04:20 Basophils % 0.9 % (0.0-2.0) 11/24/17 04:20 Sodium 136 mEq/L (136-145) 11/24/17 04:20 Potassium 4.7 mEq/L (3.5-5.1) 11/24/17 04:20 Chloride 103 mEq/L (98-107) 11/24/17 04:20 Carbon Dioxide 28.3 mEq/L (21.0-31.0) 11/24/17 04:20 Anion Gap 9.4 (7.0-16.0) 11/24/17 04:20 BUN 9 mg/dL (7-25) 11/24/17 04:20 Creatinine 0.5 mg/dL (0.7-1.3) L 11/24/17 04:20 Est GFR ( Amer) TNP 11/24/17 04:20 Est GFR (Non-Af Amer) TNP 11/24/17 04:20 BUN/Creatinine Ratio 18.0 11/24/17 04:20 Glucose 84 mg/dL (70-105) 11/24/17 04:20 POC Glucose 79 MG/DL (70 - 105) 11/19/17 06:25 Calcium 8.8 mg/dL (8.6-10.3) 11/24/17 04:20 Phosphorus 2.8 mg/dL (2.5-5.0) 11/17/17 17:35 Magnesium 1.7 mg/dL (1.9-2.7) L 11/17/17 17:35 Total Bilirubin 0.2 mg/dL (0.3-1.0) L 11/24/17 04:20 AST 15 U/L (13-39) 11/24/17 04:20 ALT 9 U/L (7-52) 11/24/17 04:20 Alkaline Phosphatase 71 U/L (34-104) 11/24/17 04:20 Total Protein 6.1 gm/dL (6.0-8.3) 11/24/17 04:20 Albumin 2.8 gm/dL (4.2-5.5) L 11/24/17 04:20 Globulin 3.3 gm/dL 11/24/17 04:20 Albumin/Globulin Ratio 0.9 (1.0-1.8) L 11/24/17 04:20 TSH 15.54 uIU/ml (0.34-5.60) H 11/17/17 17:35 Urine Source CLEAN C 11/18/17 17:30 Urine Color YELLOW 11/18/17 17:30 Urine Clarity HAZY (CLEAR) 11/18/17 17:30 Urine pH 6.0 (4.6 - 8.0) 11/18/17 17:30 Ur Specific [place] 1.020 (1.005-1.030) 11/18/17 17:30 Urine Protein NEGATIVE mg/dL (NEGATIVE) 11/18/17 17:30 Urine Glucose (UA) NEGATIVE mg/dL (NEGATIVE) 08/21/18 17:30 Urine Ketones NEGATIVE mg/dL (NEGATIVE) 11/18/17 17:30 Urine Blood NEGATIVE (NEGATIVE) 11/18/17 17:30 Urine Nitrate POSITIVE (NEGATIVE) H 11/18/17 17:30 Urine Bilirubin NEGATIVE (NEGATIVE) 11/18/17 17:30 Urine Urobilinogen 0.2 E.U./dL (0.2 - 1.0) 11/18/17 17:30 Ur Leukocyte Esterase TRACE (NEGATIVE) H 11/18/17 17:30 Urine RBC 0-2 /hpf (0-5) H 11/18/17 17:30 Urine WBC 2-5 /hpf (0-5) 11/18/17 17:30 Ur Epithelial Cells FEW /lpf (FEW) 11/18/17 17:30 Urine Bacteria 3+ /hpf (NONE SEEN) H 11/18/17 17:30 Urine Opiates Screen NEGATIVE (NEGATIVE) 11/18/17 17:30 Urine Methadone Screen NEGATIVE (NEGATIVE) 11/18/17 17:30 Ur Barbiturates Screen NEGATIVE (NEGATIVE) 11/18/17 17:30 Valproic Acid 19.8 ug/mL (50.0-100.0) L 11/17/17 17:26 Ur Tricyclics Screen POSITIVE (NEGATIVE) H 11/18/17 17:30 Ur Phencyclidine Scrn NEGATIVE (NEGATIVE) 11/18/17 17:30 Amphetamines Screen NEGATIVE (NEGATIVE) 11/18/17 17:30 U Methamphetamines Scrn NEGATIVE (NEGATIVE) 11/18/17 17:30 U Benzodiazepines Scrn POSITIVE (NEGATIVE) H 11/18/17 17:30 U Cocaine Metab Screen NEGATIVE (NEGATIVE) 11/18/17 17:30 U Cannabinoids Screen NEGATIVE (NEGATIVE) 11/18/17 17:30 - Physical Exam Vitals and I&O: Vital Signs Temp 97.6 F 11/24/17 04:00 Pulse 108 11/24/17 04:00 Resp 18 11/24/17 04:00 BP 127/68 11/24/17 04:00 Pulse Ox 99 11/24/17 04:00 Intake & Output 11/23/17 11/24/17 11/24/17 18:59 06:59 18:59 Intake Total 700 1979 Balance 700 1979 Weight (lbs) 63.503 kg 52.662 kg Intake: Intake, IV Amount 1000 Sodium Chloride 0.9% 1, 1000 000 ml @ 75 mls/hr IV . [id number] [facility] Rx#:[id number] Tube Feeding 580 Other 700 400 Other: # Voids 3 2 # Bowel Movements 0 0 Weight Source Estimated Bedscale Active Medications: Current Medications Acetaminophen (Tylenol 650mg/20.3ml Suspension) 650 mg GT Q6H PRN PRN Reason: Pain (Mild) Last Admin: 11/21/17 09:47 Dose: 650 mg Ascorbic Acid (Vitamin C) 500 mg GT DAILY [facility] Stop: 01/17/18 08:59 Last Admin: 11/23/17 08:23 Dose: 500 mg Bisacodyl (Dulcolax 10 Mg Supp) 10 mg RC DAILY PRN PRN Reason: Constipation Stop: 01/16/18 22:18 [place] Oil/[place] Balsam/Trypsin (Venelex) 1 appl TP DAILY [facility] Stop: 01/18/18 08:59 Last Admin: 11/23/17 16:46 Dose: 1 appl Divalproex Sodium (Depakote Sprinkle) 125 mg GT TID [facility]; Protocol Stop: 01/17/18 10:59 Last Admin: 11/23/17 21:36 Dose: 125 mg Docusate Sodium (Colace) 100 mg GT DAILY [facility] Stop: 01/17/18 08:59 Last Admin: 11/23/17 08:23 Dose: 100 mg Sodium Chloride (Nacl 0.9%) 1,000 mls @ 75 mls/hr IV .[id number] [facility] Stop: 01/17/18 09:59 Last Admin: 11/24/17 06:03 Dose: 75 mls/hr Levofloxacin (Levaquin Pb) 500 mg in 100 mls @ 100 mls/hr IV Q24HR [facility] Stop: 01/17/18 20:59 Last Admin: 11/23/17 21:37 Dose: 100 mls/hr Lactobacillus Rhamnosus (Culturelle 15b) 1 each PO DAILY [facility] Stop: 01/18/18 13:59 Last Admin: 11/23/17 08:23 Dose: 1 each Levothyroxine Sodium (Synthroid) 0.075 mg PO QDAC [facility] Stop: 01/17/18 07:29 Last Admin: 11/24/17 06:53 Dose: 0.075 mg Lorazepam (Ativan) 0.5 mg PO Q6H PRN; Protocol PRN Reason: Agitation Stop: 01/17/18 09:04 Last Admin: 11/22/17 08:51 Dose: 0.5 mg Lorazepam (Ativan) 0.5 mg IVP Q6HR PRN; Protocol PRN Reason: Agitation Stop: 01/21/18 09:21 Last Admin: 11/22/17 12:55 Dose: 0.5 mg Miscellaneous (Probiotic Screen) 1 ea MC PRN PRN PRN Reason: PROTOCOL Stop: 01/18/18 11:34 Ondansetron HCl (Zofran Odt) 4 mg SL Q6HR PRN PRN Reason: Nausea Stop: 01/16/18 22:18 Quetiapine Fumarate (Seroquel) 100 mg GT BID [facility] Stop: 01/19/18 08:59 Last Admin: 11/23/17 17:46 Dose: 100 mg Zinc Sulfate (Zinc Sulfate) 220 mg GT DAILY [facility] Stop: 01/17/18 08:59 Last Admin: 11/23/17 16:46 Dose: 220 mg General: Alert, Other (Confused and agressive at moments) HEENT: Atraumatic Neck: Supple Cardiovascular: Regular rate Lungs: Clear to auscultation Abdomen: Bowel sounds, Soft Extremities: Other (No edema) Neurological: Other (Non ambulatory) Skin: Other (Decubit ulcers in thoracic and hip area) Psych/Mental Status: Other (Patient is confused) - Procedures Procedures: Procedures Procedure Code Date EXCISION OF BACK SUBCU/FASCIA, OPEN APPROACH [id number] 11/17/17 EXCISION OF PELVIC SUBCU/FASCIA, OPEN APPROACH [id number] 11/17/17 Assessment/Plan - Assessment Assessment: Patient is awake, agitated at moments. UA shows UTI. Patient was discharge yesterday but was not send to the SNF. Dx: Increased in agitation, Dehydration, Hypotension, Failure to trieve, Decubit ulcer in thoracic area and hip area, COPD, Schizophrenia, Bipolar, Dysphagia, UTI. - Plan Plan: Patient is in IV NS continue with SNF meds,Started in IV AB. Wound was debrided yesterday. Patient improving. Awaiting placement, due that SNF were he came from did not accepted him back. will continue to monitor. Nutritional Asmnt/Malnutr-PDOC - Dietary Evaluation Malnutrition Findings (Please click <Entered> for more info): Nutritional Asmnt/Malnutrition Start: 11/18/17 14: 31 Text: Status: Complete Freq: Protocol: Document 11/18/17 14:31 RADHIKA (Rec: 11/18/17 15:02 [email or web address]) Nutritional Asmnt/Malnutrition Patient General Information Nutritional Screening High Risk Diagnosis dehydration Pertinent Medical Hx/Surgical Hx thyroid, Gtube placement, bipolar, anxiety, schizophrenia Subjective Information Pt admitted with Gtube and multiple wounds. Per nurse note, pt may have surgical procedure for excisional debridement decubitus ulcers, wait for consent. Current Diet Order/ Nutrition Support Jevity 1.2 237ml x 4 daily Pertinent Medications vit C, colace, synthroid, seroquel, nacl 0.9%, zinc Pertinent Labs 11/18 Na 135, Cr 0.5 Nutritional Hx/Data Height 1.68 m Height (Calculated Centimeters) 167.6 Current Weight (lbs) 48.534 kg Weight (Calculated Kilograms) 48.5 Weight (Calculated Grams) 97715.4 [place] Body Weight 142 Body Mass Index (BMI) 17.2 Weight Status Underweight GI Symptoms GI Symptoms None Last BM none Difficult in: None Usual diet at home jevity 1.2 237ml x 4 daily at care facility per chart Skin Integrity/Comment: pressure area reddened to coccyx and ulceration to upper back Estimated Nutritional Goals BEE in Kcals: Using Current wt Calories/Kcals/Kg 25-30 Kcals Calculated 2290-1169 Protein: Using Current wt Protein g/k.2-1.4 Protein Calculated 59-69 Fluid: ml 1470-1715ml (1ml/kcal) Nutritional Problem 2. Problem Problem inadequate intake from enteral feeding Etiology bolus feeding not meeting 100% of nutritional needs Signs/Symptoms: bolus feeding only provide 1138kcal and 53g protein 1. Problem Problem increased nutrition needs Etiology impaired skin integrity and underweight Signs/Symptoms: ulcer/wounds, BMI 17.3 Intervention/Recommendation Comments 1. Recommend increased bolus feeding to 235ml x 5 times daily. This will provide 1422kcal, 66g protein, 956ml free water, meeting 100% of nutritional needs 2. Monitor TF tolerance, wt, skin integrity and labs 3. F/U as high risk in 2-3 days, 11/20-11/21 Expected Outcomes/Goals Expected Outcomes/Goals 1. Pt to meet at least 75% of nutritional needs via nutrition support with tolerance 2. Wt stability, skin integrity to improve, labs to approach WNL.
[2017-11-24] MEDS: Lactobacillus Rhamnosus GG 15 Billion CFU CAP.SPRINK PO SCH (08:51)
[2017-11-24] MEDS: Docusate Sodium 100 mg/10 mL UD GT SCH (08:52)
[2017-11-24] MEDS: Venelex 60gm Tube TP SCH (11:11)
--- NOTE | 2017-11-24 13:03 | General Progress Note ---
Subjective - Review of Systems Service Date: 11/24/17 Events since last encounter: continue local wound care Objective - Results Result Diagrams: 11/24/17 04:20 11/24/17 04:20 Recent Labs: Laboratory Last Values WBC 7.9 Th/cmm (4.8-10.8) 11/24/17 04:20 RBC 3.85 Mil/cmm (3.80-5.80) 11/24/17 04:20 Hgb 12.5 gm/dL (12-16) 11/24/17 04:20 Hct 36.8 % (41.0-60) L 11/24/17 04:20 MCV 95.4 fl (80-99) 11/24/17 04:20 MCH 32.5 pg (27.0-31.0) H 11/24/17 04:20 MCHC Differential 34.0 pg (28.0-36.0) 11/24/17 04:20 RDW 14.3 % (11.5-20.0) 11/24/17 04:20 Plt Count 344 Th/cmm (150-400) 11/24/17 04:20 MPV 8.9 fl 11/24/17 04:20 Neutrophils % 64.2 % (40.0-80.0) 11/24/17 04:20 Lymphocytes % 23.7 % (20.0-50.0) 11/24/17 04:20 Monocytes % 8.5 % (2.0-10.0) 11/24/17 04:20 Eosinophils % 2.7 % (0.0-5.0) 11/24/17 04:20 Basophils % 0.9 % (0.0-2.0) 11/24/17 04:20 Sodium 136 mEq/L (136-145) 11/24/17 04:20 Potassium 4.7 mEq/L (3.5-5.1) 11/24/17 04:20 Chloride 103 mEq/L (98-107) 11/24/17 04:20 Carbon Dioxide 28.3 mEq/L (21.0-31.0) 11/24/17 04:20 Anion Gap 9.4 (7.0-16.0) 11/24/17 04:20 BUN 9 mg/dL (7-25) 11/24/17 04:20 Creatinine 0.5 mg/dL (0.7-1.3) L 11/24/17 04:20 Est GFR ( Amer) TNP 11/24/17 04:20 Est GFR (Non-Af Amer) TNP 11/24/17 04:20 BUN/Creatinine Ratio 18.0 11/24/17 04:20 Glucose 84 mg/dL (70-105) 11/24/17 04:20 POC Glucose 79 MG/DL (70 - 105) 11/19/17 06:25 Calcium 8.8 mg/dL (8.6-10.3) 11/24/17 04:20 Phosphorus 2.8 mg/dL (2.5-5.0) 11/17/17 17:35 Magnesium 1.7 mg/dL (1.9-2.7) L 11/17/17 17:35 Total Bilirubin 0.2 mg/dL (0.3-1.0) L 11/24/17 04:20 AST 15 U/L (13-39) 11/24/17 04:20 ALT 9 U/L (7-52) 11/24/17 04:20 Alkaline Phosphatase 71 U/L (34-104) 11/24/17 04:20 Total Protein 6.1 gm/dL (6.0-8.3) 11/24/17 04:20 Albumin 2.8 gm/dL (4.2-5.5) L 11/24/17 04:20 Globulin 3.3 gm/dL 11/24/17 04:20 Albumin/Globulin Ratio 0.9 (1.0-1.8) L 11/24/17 04:20 TSH 15.54 uIU/ml (0.34-5.60) H 11/17/17 17:35 Urine Source CLEAN C 11/18/17 17:30 Urine Color YELLOW 11/18/17 17:30 Urine Clarity HAZY (CLEAR) 11/18/17 17:30 Urine pH 6.0 (4.6 - 8.0) 11/18/17 17:30 Ur Specific [place] 1.020 (1.005-1.030) 11/18/17 17:30 Urine Protein NEGATIVE mg/dL (NEGATIVE) 11/18/17 17:30 Urine Glucose (UA) NEGATIVE mg/dL (NEGATIVE) 11/18/17 17:30 Urine Ketones NEGATIVE mg/dL (NEGATIVE) 11/18/17 17:30 Urine Blood NEGATIVE (NEGATIVE) 11/18/17 17:30 Urine Nitrate POSITIVE (NEGATIVE) H 11/18/17 17:30 Urine Bilirubin NEGATIVE (NEGATIVE) 11/18/17 17:30 Urine Urobilinogen 0.2 E.U./dL (0.2 - 1.0) 11/18/17 17:30 Ur Leukocyte Esterase TRACE (NEGATIVE) H 11/18/17 17:30 Urine RBC 0-2 /hpf (0-5) H 11/18/17 17:30 Urine WBC 2-5 /hpf (0-5) 11/18/17 17:30 Ur Epithelial Cells FEW /lpf (FEW) 11/18/17 17:30 Urine Bacteria 3+ /hpf (NONE SEEN) H 11/18/17 17:30 Urine Opiates Screen NEGATIVE (NEGATIVE) 11/18/17 17:30 Urine Methadone Screen NEGATIVE (NEGATIVE) 11/18/17 17:30 Ur Barbiturates Screen NEGATIVE (NEGATIVE) 11/18/17 17:30 Valproic Acid 19.8 ug/mL (50.0-100.0) L 11/17/17 17:26 Ur Tricyclics Screen POSITIVE (NEGATIVE) H 11/18/17 17:30 Ur Phencyclidine Scrn NEGATIVE (NEGATIVE) 11/18/17 17:30 Amphetamines Screen NEGATIVE (NEGATIVE) 11/18/17 17:30 U Methamphetamines Scrn NEGATIVE (NEGATIVE) 11/18/17 17:30 U Benzodiazepines Scrn POSITIVE (NEGATIVE) H 11/18/17 17:30 U Cocaine Metab Screen NEGATIVE (NEGATIVE) 11/18/17 17:30 U Cannabinoids Screen NEGATIVE (NEGATIVE) 11/18/17 17:30 - Physical Exam Vitals and I&O: Vital Signs Temp 98 F 11/24/17 08:00 Pulse 100 11/24/17 08:00 Resp 18 11/24/17 08:00 BP 149/63 11/24/17 08:00 Pulse Ox 94 11/24/17 08:00 Intake & Output 11/23/17 11/24/17 11/24/17 18:59 06:59 18:59 Intake Total 700 1979 Balance 700 1979 Weight (lbs) 63.503 kg 52.662 kg 52.662 kg Intake: Intake, IV Amount 1000 Sodium Chloride 0.9% 1, 1000 000 ml @ 75 mls/hr IV . [id number] [facility] Rx#:[id number] Oral 0 Tube Feeding 580 100 Other 700 400 400 Other: # Voids 3 2 # Bowel Movements 0 0 Weight Source Estimated Bedscale Bedscale Active Medications: Current Medications Acetaminophen (Tylenol 650mg/20.3ml Suspension) 650 mg GT Q6H PRN PRN Reason: Pain (Mild) Last Admin: 11/21/17 09:47 Dose: 650 mg Ascorbic Acid (Vitamin C) 500 mg GT DAILY [facility] Stop: 01/17/18 08:59 Last Admin: 11/24/17 08:51 Dose: 500 mg Bisacodyl (Dulcolax 10 Mg Supp) 10 mg RC DAILY PRN PRN Reason: Constipation Stop: 01/16/18 22:18 [place] Oil/[place] Balsam/Trypsin (Venelex) 1 appl TP DAILY [facility] Stop: 01/18/18 08:59 Last Admin: 11/24/17 11:11 Dose: 1 appl Divalproex Sodium (Depakote Sprinkle) 125 mg GT TID [facility]; Protocol Stop: 01/17/18 10:59 Last Admin: 11/24/17 08:51 Dose: 125 mg Docusate Sodium (Colace) 100 mg GT DAILY [facility] Stop: 01/17/18 08:59 Last Admin: 11/24/17 08:52 Dose: 100 mg Sodium Chloride (Nacl 0.9%) 1,000 mls @ 75 mls/hr IV .[id number] [facility] Stop: 01/17/18 09:59 Last Admin: 11/24/17 06:03 Dose: 75 mls/hr Levofloxacin (Levaquin Pb) 500 mg in 100 mls @ 100 mls/hr IV Q24HR [facility] Stop: 01/17/18 20:59 Last Admin: 11/23/17 21:37 Dose: 100 mls/hr Lactobacillus Rhamnosus (Culturelle 15b) 1 each PO DAILY [facility] Stop: 01/18/18 13:59 Last Admin: 11/24/17 08:51 Dose: 1 each Levothyroxine Sodium (Synthroid) 0.075 mg PO QDAC [facility] Stop: 01/17/18 07:29 Last Admin: 11/24/17 06:53 Dose: 0.075 mg Lorazepam (Ativan) 0.5 mg PO Q6H PRN; Protocol PRN Reason: Agitation Stop: 01/17/18 09:04 Last Admin: 11/24/17 08:51 Dose: 0.5 mg Lorazepam (Ativan) 0.5 mg IVP Q6HR PRN; Protocol PRN Reason: Agitation Stop: 01/21/18 09:21 Last Admin: 11/24/17 11:11 Dose: 0.5 mg Miscellaneous (Probiotic Screen) 1 ea MC PRN PRN PRN Reason: PROTOCOL Stop: 01/18/18 11:34 Ondansetron HCl (Zofran Odt) 4 mg SL Q6HR PRN PRN Reason: Nausea Stop: 01/16/18 22:18 Quetiapine Fumarate (Seroquel) 100 mg GT BID [facility] Stop: 01/19/18 08:59 Last Admin: 11/24/17 08:51 Dose: 100 mg Zinc Sulfate (Zinc Sulfate) 220 mg GT DAILY [facility] Stop: 01/17/18 08:59 Last Admin: 11/24/17 08:51 Dose: 220 mg General: Alert, Other (Confused and agressive at moments) HEENT: Atraumatic Neck: Supple Cardiovascular: Regular rate Lungs: Clear to auscultation Abdomen: Bowel sounds, Soft Extremities: Other (No edema) Neurological: Other (Non ambulatory) Skin: Other (Decubit ulcers in thoracic and hip area) Psych/Mental Status: Other (Patient is confused) - Procedures Procedures: Procedures Procedure Code Date EXCISION OF BACK SUBCU/FASCIA, OPEN APPROACH [id number] 11/17/17 EXCISION OF PELVIC SUBCU/FASCIA, OPEN APPROACH [id number] 11/17/17 Nutritional Asmnt/Malnutr-PDOC - Dietary Evaluation Malnutrition Findings (Please click <Entered> for more info): Nutritional Asmnt/Malnutrition Start: 11/18/17 14: 31 Text: Status: Complete Freq: Protocol: Document 11/18/17 14:31 LCHENG (Rec: 11/18/17 15:02 [email or web address]) Nutritional Asmnt/Malnutrition Patient General Information Nutritional Screening High Risk Diagnosis dehydration Pertinent Medical Hx/Surgical Hx thyroid, Gtube placement, bipolar, anxiety, schizophrenia Subjective Information Pt admitted with Gtube and multiple wounds. Per nurse note, pt may have surgical procedure for excisional debridement decubitus ulcers, wait for consent. Current Diet Order/ Nutrition Support Jevity 1.2 237ml x 4 daily Pertinent Medications vit C, colace, synthroid, seroquel, nacl 0.9%, zinc Pertinent Labs 11/18 Na 135, Cr 0.5 Nutritional Hx/Data Height 1.68 m Height (Calculated Centimeters) 167.6 Current Weight (lbs) 48.534 kg Weight (Calculated Kilograms) 48.5 Weight (Calculated Grams) 52205.4 [place] Body Weight 142 Body Mass Index (BMI) 17.2 Weight Status Underweight GI Symptoms GI Symptoms None Last BM none Difficult in: None Usual diet at home jevity 1.2 237ml x 4 daily at care facility per chart Skin Integrity/Comment: pressure area reddened to coccyx and ulceration to upper back Estimated Nutritional Goals BEE in Kcals: Using Current wt Calories/Kcals/Kg 25-30 Kcals Calculated 3317-0290 Protein: Using Current wt Protein g/k.2-1.4 Protein Calculated 59-69 Fluid: ml 1470-1715ml (1ml/kcal) Nutritional Problem 2. Problem Problem inadequate intake from enteral feeding Etiology bolus feeding not meeting 100% of nutritional needs Signs/Symptoms: bolus feeding only provide 1138kcal and 53g protein 1. Problem Problem increased nutrition needs Etiology impaired skin integrity and underweight Signs/Symptoms: ulcer/wounds, BMI 17.3 Intervention/Recommendation Comments 1. Recommend increased bolus feeding to 235ml x 5 times daily. This will provide 1422kcal, 66g protein, 956ml free water, meeting 100% of nutritional needs 2. Monitor TF tolerance, wt, skin integrity and labs 3. F/U as high risk in 2-3 days, 11/20-11/21 Expected Outcomes/Goals Expected Outcomes/Goals 1. Pt to meet at least 75% of nutritional needs via nutrition support with tolerance 2. Wt stability, skin integrity to improve, labs to approach WNL.
[2017-11-24] MEDS: Levofloxacin 500mg/100mL 500 MG/100 ML BAG IV SCH (21:30)
[2017-11-25] MEDS: Levothyroxine 0.075 Mg Tab PO SCH (07:28)
[2017-11-25] MEDS: Docusate Sodium 100 mg/10 mL UD GT SCH (08:06)
[2017-11-25] MEDS: Lactobacillus Rhamnosus GG 15 Billion CFU CAP.SPRINK PO SCH (08:06)
--- NOTE | 2017-11-25 08:50 | General Progress Note ---
Subjective - Review of Systems Service Date: 11/25/17 Subjective: Patient confused, calm, not oriented. Objective - Results Result Diagrams: 11/26/17 04:35 11/26/17 04:35 Recent Labs: Laboratory Last Values WBC 7.9 Th/cmm (4.8-10.8) 11/24/17 04:20 RBC 3.85 Mil/cmm (3.80-5.80) 11/24/17 04:20 Hgb 12.5 gm/dL (12-16) 11/24/17 04:20 Hct 36.8 % (41.0-60) L 11/24/17 04:20 MCV 95.4 fl (80-99) 11/24/17 04:20 MCH 32.5 pg (27.0-31.0) H 11/24/17 04:20 MCHC Differential 34.0 pg (28.0-36.0) 11/24/17 04:20 RDW 14.3 % (11.5-20.0) 11/24/17 04:20 Plt Count 344 Th/cmm (150-400) 11/24/17 04:20 MPV 8.9 fl 11/24/17 04:20 Neutrophils % 64.2 % (40.0-80.0) 11/24/17 04:20 Lymphocytes % 23.7 % (20.0-50.0) 11/24/17 04:20 Monocytes % 8.5 % (2.0-10.0) 11/24/17 04:20 Eosinophils % 2.7 % (0.0-5.0) 11/24/17 04:20 Basophils % 0.9 % (0.0-2.0) 11/24/17 04:20 Sodium 136 mEq/L (136-145) 11/24/17 04:20 Potassium 4.7 mEq/L (3.5-5.1) 11/24/17 04:20 Chloride 103 mEq/L (98-107) 11/24/17 04:20 Carbon Dioxide 28.3 mEq/L (21.0-31.0) 11/24/17 04:20 Anion Gap 9.4 (7.0-16.0) 11/24/17 04:20 BUN 9 mg/dL (7-25) 11/24/17 04:20 Creatinine 0.5 mg/dL (0.7-1.3) L 11/24/17 04:20 Est GFR ( Amer) TNP 11/24/17 04:20 Est GFR (Non-Af Amer) TNP 11/24/17 04:20 BUN/Creatinine Ratio 18.0 11/24/17 04:20 Glucose 84 mg/dL (70-105) 11/24/17 04:20 POC Glucose 79 MG/DL (70 - 105) 11/19/17 06:25 Calcium 8.8 mg/dL (8.6-10.3) 11/24/17 04:20 Phosphorus 2.8 mg/dL (2.5-5.0) 11/17/17 17:35 Magnesium 1.7 mg/dL (1.9-2.7) L 11/17/17 17:35 Total Bilirubin 0.2 mg/dL (0.3-1.0) L 11/24/17 04:20 AST 15 U/L (13-39) 11/24/17 04:20 ALT 9 U/L (7-52) 11/24/17 04:20 Alkaline Phosphatase 71 U/L (34-104) 11/24/17 04:20 Total Protein 6.1 gm/dL (6.0-8.3) 11/24/17 04:20 Albumin 2.8 gm/dL (4.2-5.5) L 11/24/17 04:20 Globulin 3.3 gm/dL 11/24/17 04:20 Albumin/Globulin Ratio 0.9 (1.0-1.8) L 11/24/17 04:20 TSH 15.54 uIU/ml (0.34-5.60) H 11/17/17 17:35 Urine Source CLEAN C 11/18/17 17:30 Urine Color YELLOW 11/18/17 17:30 Urine Clarity HAZY (CLEAR) 11/18/17 17:30 Urine pH 6.0 (4.6 - 8.0) 11/18/17 17:30 Ur Specific [place] 1.020 (1.005-1.030) 11/18/17 17:30 Urine Protein NEGATIVE mg/dL (NEGATIVE) 11/18/17 17:30 Urine Glucose (UA) NEGATIVE mg/dL (NEGATIVE) 11/18/17 17:30 Urine Ketones NEGATIVE mg/dL (NEGATIVE) 11/18/17 17:30 Urine Blood NEGATIVE (NEGATIVE) 11/18/17 17:30 Urine Nitrate POSITIVE (NEGATIVE) H 11/18/17 17:30 Urine Bilirubin NEGATIVE (NEGATIVE) 11/18/17 17:30 Urine Urobilinogen 0.2 E.U./dL (0.2 - 1.0) 11/18/17 17:30 Ur Leukocyte Esterase TRACE (NEGATIVE) H 11/18/17 17:30 Urine RBC 0-2 /hpf (0-5) H 11/18/17 17:30 Urine WBC 2-5 /hpf (0-5) 11/18/17 17:30 Ur Epithelial Cells FEW /lpf (FEW) 11/18/17 17:30 Urine Bacteria 3+ /hpf (NONE SEEN) H 11/18/17 17:30 Urine Opiates Screen NEGATIVE (NEGATIVE) 11/18/17 17:30 Urine Methadone Screen NEGATIVE (NEGATIVE) 11/18/17 17:30 Ur Barbiturates Screen NEGATIVE (NEGATIVE) 11/18/17 17:30 Valproic Acid 19.8 ug/mL (50.0-100.0) L 11/17/17 17:26 Ur Tricyclics Screen POSITIVE (NEGATIVE) H 11/18/17 17:30 Ur Phencyclidine Scrn NEGATIVE (NEGATIVE) 11/18/17 17:30 Amphetamines Screen NEGATIVE (NEGATIVE) 11/18/17 17:30 U Methamphetamines Scrn NEGATIVE (NEGATIVE) 11/18/17 17:30 U Benzodiazepines Scrn POSITIVE (NEGATIVE) H 11/18/17 17:30 U Cocaine Metab Screen NEGATIVE (NEGATIVE) 11/18/17 17:30 U Cannabinoids Screen NEGATIVE (NEGATIVE) 11/18/17 17:30 - Physical Exam Vitals and I&O: Vital Signs Temp 97 F 11/25/17 07:37 Pulse 104 11/25/17 07:37 Resp 18 11/25/17 07:37 BP 134/73 11/25/17 07:37 Pulse Ox 96 11/25/17 07:37 Intake & Output 11/24/17 11/25/17 11/25/17 18:59 06:59 18:59 Intake Total 500 1230 Balance 500 1230 Weight (lbs) 52.662 kg 53.07 kg Intake: Intake, IV Amount 50 Levofloxacin 500mg/100mL 50 500 mg In 100 ml @ 100 mls/hr IV Q24HR [facility] Rx#: [id number] Oral 0 Tube Feeding 100 580 Other 400 600 Other: # Voids 2 # Bowel Movements 1 Weight Source Bedscale Bedscale Active Medications: Current Medications Acetaminophen (Tylenol 650mg/20.3ml Suspension) 650 mg GT Q6H PRN PRN Reason: Pain (Mild) Last Admin: 11/21/17 09:47 Dose: 650 mg Ascorbic Acid (Vitamin C) 500 mg GT DAILY BRAD Stop: 01/17/18 08:59 Last Admin: 11/25/17 08:06 Dose: 500 mg Bisacodyl (Dulcolax 10 Mg Supp) 10 mg RC DAILY PRN PRN Reason: Constipation Stop: 01/16/18 22:18 [place] Oil/[place] Balsam/Trypsin (Venelex) 1 appl TP DAILY BRAD Stop: 01/18/18 08:59 Last Admin: 11/24/17 11:11 Dose: 1 appl Divalproex Sodium (Depakote Sprinkle) 125 mg GT TID [facility]; Protocol Stop: 01/17/18 10:59 Last Admin: 11/25/17 08:05 Dose: 125 mg Docusate Sodium (Colace) 100 mg GT DAILY BRAD Stop: 01/17/18 08:59 Last Admin: 11/25/17 08:06 Dose: 100 mg Levofloxacin (Levaquin Pb) 500 mg in 100 mls @ 100 mls/hr IV Q24HR BRAD Stop: 01/17/18 20:59 Last Infusion: 11/24/17 22:00 Dose: 0 mls/hr Lactobacillus Rhamnosus (Culturelle 15b) 1 each PO DAILY BRAD Stop: 01/18/18 13:59 Last Admin: 11/25/17 08:06 Dose: 1 each Levothyroxine Sodium (Synthroid) 0.075 mg PO QDAC BRAD Stop: 01/17/18 07:29 Last Admin: 11/25/17 07:28 Dose: 0.075 mg Lorazepam (Ativan) 0.5 mg PO Q6H PRN; Protocol PRN Reason: Agitation Stop: 01/17/18 09:04 Last Admin: 11/24/17 16:11 Dose: 0.5 mg Lorazepam (Ativan) 0.5 mg IVP Q6HR PRN; Protocol PRN Reason: Agitation Stop: 01/21/18 09:21 Last Admin: 11/24/17 21:30 Dose: 0.5 mg Miscellaneous (Probiotic Screen) 1 ea MC PRN PRN PRN Reason: PROTOCOL Stop: 01/18/18 11:34 Ondansetron HCl (Zofran Odt) 4 mg SL Q6HR PRN PRN Reason: Nausea Stop: 01/16/18 22:18 Quetiapine Fumarate (Seroquel) 100 mg GT BID [facility] Stop: 01/19/18 08:59 Last Admin: 11/25/17 08:06 Dose: 100 mg Zinc Sulfate (Zinc Sulfate) 220 mg GT DAILY [facility] Stop: 01/17/18 08:59 Last Admin: 11/25/17 08:06 Dose: 220 mg General: Alert, Other (Confused and agressive at moments) HEENT: Atraumatic Neck: Supple Cardiovascular: Regular rate Lungs: Clear to auscultation Abdomen: Bowel sounds, Soft Extremities: Other (No edema) Neurological: Other (Non ambulatory) Skin: Other (Decubit ulcers in thoracic and hip area improving.) Psych/Mental Status: Other (Patient is confused) - Procedures Procedures: Procedures Procedure Code Date EXCISION OF BACK SUBCU/FASCIA, OPEN APPROACH [id number] 11/17/17 EXCISION OF PELVIC SUBCU/FASCIA, OPEN APPROACH [id number] 11/17/17 Assessment/Plan - Assessment Assessment: Patient is awake, agitated at moments. Patient was discharge but SNF did not accepted him back, SNF is DUMPING the patient in this hospital, now we have to look for placement. Patient is medically clear to be DC to an SNF. Dx: Increased in agitation, Dehydration, Hypotension, Failure to trieve, Decubit ulcer in thoracic area and hip area, COPD, Schizophrenia, Bipolar, Dysphagia, UTI. - Plan Plan: Patient is continue with SNF meds, wound treatment is continue. Patient improving. Awaiting placement, due that SNF were he came from did not accepted him back. will continue to monitor. Nutritional Asmnt/Malnutr-PDOC - Dietary Evaluation Malnutrition Findings (Please click <Entered> for more info): Nutritional Asmnt/Malnutrition Start: 11/18/17 14: 31 Text: Status: Complete Freq: Protocol: Document 11/18/17 14:31 LCHENG (Rec: 11/18/17 15:02 [email or web address]) Nutritional Asmnt/Malnutrition Patient General Information Nutritional Screening High Risk Diagnosis dehydration Pertinent Medical Hx/Surgical Hx thyroid, Gtube placement, bipolar, anxiety, schizophrenia Subjective Information Pt admitted with Gtube and multiple wounds. Per nurse note, pt may have surgical procedure for excisional debridement decubitus ulcers, wait for consent. Current Diet Order/ Nutrition Support Jevity 1.2 237ml x 4 daily Pertinent Medications vit C, colace, synthroid, seroquel, nacl 0.9%, zinc Pertinent Labs 11/18 Na 135, Cr 0.5 Nutritional Hx/Data Height 1.68 m Height (Calculated Centimeters) 167.6 Current Weight (lbs) 48.534 kg Weight (Calculated Kilograms) 48.5 Weight (Calculated Grams) 49202.4 [place] Body Weight 142 Body Mass Index (BMI) 17.2 Weight Status Underweight GI Symptoms GI Symptoms None Last BM none Difficult in: None Usual diet at home jevity 1.2 237ml x 4 daily at care facility per chart Skin Integrity/Comment: pressure area reddened to coccyx and ulceration to upper back Estimated Nutritional Goals BEE in Kcals: Using Current wt Calories/Kcals/Kg 25-30 Kcals Calculated 7732-9168 Protein: Using Current wt Protein g/k.2-1.4 Protein Calculated 59-69 Fluid: ml 1470-1715ml (1ml/kcal) Nutritional Problem 2. Problem Problem inadequate intake from enteral feeding Etiology bolus feeding not meeting 100% of nutritional needs Signs/Symptoms: bolus feeding only provide 1138kcal and 53g protein 1. Problem Problem increased nutrition needs Etiology impaired skin integrity and underweight Signs/Symptoms: ulcer/wounds, BMI 17.3 Intervention/Recommendation Comments 1. Recommend increased bolus feeding to 235ml x 5 times daily. This will provide 1422kcal, 66g protein, 956ml free water, meeting 100% of nutritional needs 2. Monitor TF tolerance, wt, skin integrity and labs 3. F/U as high risk in 2-3 days, 11/20-11/21 Expected Outcomes/Goals Expected Outcomes/Goals 1. Pt to meet at least 75% of nutritional needs via nutrition support with tolerance 2. Wt stability, skin integrity to improve, labs to approach WNL.
[2017-11-25] MEDS: Venelex 60gm Tube TP SCH ×2 (13:12→16:27)
[2017-11-26 05:31] LABS: % BASOPHILS 0.4 % (0.0-2.0); % EOSINOPHILS 2.7 % (0.0-5.0); % LYMPHOCYTES 23.6 % (20.0-50.0); % MONOCYTES 8.9 % (2.0-10.0); % NEUTROPHILS 64.4 % (40.0-80.0); EOSINOPHILE ABSOLUTE 0.2 Th/cmm (0.1-0.4); HEMATOCRIT 37.1 % (41.0-60); HEMOGLOBIN 12.6 gm/dL (12-16); MEAN CELL VOLUME 94.7 fl (80-99); MEAN CORPUSCULAR HGB CONC 33.8 pg (28.0-36.0); MONOCYTE ABSOLUTE 0.8 Th/cmm (0.3-1.0); NEUTROPHILE ABSOLUTE 5.6 Th/cmm (1.8-8.0); PLATELET COUNT 337 Th/cmm (150-400); RED BLOOD COUNT 3.92 Mil/cmm (3.80-5.80); RED CELL DISTRIBUTION WIDTH 14.4 % (11.5-20.0); WHITE BLOOD COUNT 8.6 Th/cmm (4.8-10.8)
[2017-11-26 05:41] LABS: ALB/GLOB RATIO 0.9 (1.0-1.8); ALBUMIN 2.9 gm/dL (4.2-5.5); ALKALINE PHOSPHATASE 74 U/L (34-104); ANION GAP 10.3 (7.0-16.0); BILIRUBIN,TOTAL 0.2 mg/dL (0.3-1.0); BUN - UREA NITROGEN 14 mg/dL (7-25); CARBON DIOXIDE 28.3 mEq/L (21.0-31.0); CHLORIDE 104 mEq/L (98-107); CREATININE - SERUM 0.5 mg/dL (0.7-1.3); GLUCOSE 106 mg/dL (70-105); POTASSIUM SERUM 4.6 mEq/L (3.5-5.1); SGOT 14 U/L (13-39); SGPT/ALT 8 U/L (7-52); SODIUM SERUM 138 mEq/L (136-145); TOTAL PROTEIN,SERUM 6.1 gm/dL (6.0-8.3)
[2017-11-26] MEDS: Levothyroxine 0.075 Mg Tab PO SCH (06:44)
--- NOTE | 2017-11-26 09:02 | General Progress Note ---
Subjective - Review of Systems Service Date: 11/26/17 Subjective: Patient confused, calm, not oriented. Objective - Results Result Diagrams: 11/26/17 04:35 11/26/17 04:35 Recent Labs: Laboratory Last Values WBC 8.6 Th/cmm (4.8-10.8) 11/26/17 04:35 RBC 3.92 Mil/cmm (3.80-5.80) 11/26/17 04:35 Hgb 12.6 gm/dL (12-16) 11/26/17 04:35 Hct 37.1 % (41.0-60) L 11/26/17 04:35 MCV 94.7 fl (80-99) 11/26/17 04:35 MCH 32.0 pg (27.0-31.0) H 11/26/17 04:35 MCHC Differential 33.8 pg (28.0-36.0) 11/26/17 04:35 RDW 14.4 % (11.5-20.0) 11/26/17 04:35 Plt Count 337 Th/cmm (150-400) 11/26/17 04:35 MPV 9.0 fl 11/26/17 04:35 Neutrophils % 64.4 % (40.0-80.0) 11/26/17 04:35 Lymphocytes % 23.6 % (20.0-50.0) 11/26/17 04:35 Monocytes % 8.9 % (2.0-10.0) 11/26/17 04:35 Eosinophils % 2.7 % (0.0-5.0) 11/26/17 04:35 Basophils % 0.4 % (0.0-2.0) 11/26/17 04:35 Sodium 138 mEq/L (136-145) 11/26/17 04:35 Potassium 4.6 mEq/L (3.5-5.1) 11/26/17 04:35 Chloride 104 mEq/L (98-107) 11/26/17 04:35 Carbon Dioxide 28.3 mEq/L (21.0-31.0) 11/26/17 04:35 Anion Gap 10.3 (7.0-16.0) 11/26/17 04:35 BUN 14 mg/dL (7-25) 11/26/17 04:35 Creatinine 0.5 mg/dL (0.7-1.3) L 11/26/17 04:35 Est GFR ( Amer) TNP 11/26/17 04:35 Est GFR (Non-Af Amer) TNP 11/26/17 04:35 BUN/Creatinine Ratio 28.0 11/26/17 04:35 Glucose 106 mg/dL (70-105) H 11/26/17 04:35 POC Glucose 79 MG/DL (70 - 105) 11/19/17 06:25 Calcium 9.0 mg/dL (8.6-10.3) 11/26/17 04:35 Phosphorus 2.8 mg/dL (2.5-5.0) 11/17/17 17:35 Magnesium 1.7 mg/dL (1.9-2.7) L 11/17/17 17:35 Total Bilirubin 0.2 mg/dL (0.3-1.0) L 11/26/17 04:35 AST 14 U/L (13-39) 11/26/17 04:35 ALT 8 U/L (7-52) 11/26/17 04:35 Alkaline Phosphatase 74 U/L (34-104) 11/26/17 04:35 Total Protein 6.1 gm/dL (6.0-8.3) 11/26/17 04:35 Albumin 2.9 gm/dL (4.2-5.5) L 11/26/17 04:35 Globulin 3.2 gm/dL 11/26/17 04:35 Albumin/Globulin Ratio 0.9 (1.0-1.8) L 11/26/17 04:35 TSH 15.54 uIU/ml (0.34-5.60) H 11/17/17 17:35 Urine Source CLEAN C 11/18/17 17:30 Urine Color YELLOW 11/18/17 17:30 Urine Clarity HAZY (CLEAR) 11/18/17 17:30 Urine pH 6.0 (4.6 - 8.0) 11/18/17 17:30 Ur Specific [place] 1.020 (1.005-1.030) 11/18/17 17:30 Urine Protein NEGATIVE mg/dL (NEGATIVE) 11/18/17 17:30 Urine Glucose (UA) NEGATIVE mg/dL (NEGATIVE) 11/18/17 17:30 Urine Ketones NEGATIVE mg/dL (NEGATIVE) 11/18/17 17:30 Urine Blood NEGATIVE (NEGATIVE) 11/18/17 17:30 Urine Nitrate POSITIVE (NEGATIVE) H 11/18/17 17:30 Urine Bilirubin NEGATIVE (NEGATIVE) 11/18/17 17:30 Urine Urobilinogen 0.2 E.U./dL (0.2 - 1.0) 11/18/17 17:30 Ur Leukocyte Esterase TRACE (NEGATIVE) H 11/18/17 17:30 Urine RBC 0-2 /hpf (0-5) H 11/18/17 17:30 Urine WBC 2-5 /hpf (0-5) 11/18/17 17:30 Ur Epithelial Cells FEW /lpf (FEW) 11/18/17 17:30 Urine Bacteria 3+ /hpf (NONE SEEN) H 11/18/17 17:30 Urine Opiates Screen NEGATIVE (NEGATIVE) 11/18/17 17:30 Urine Methadone Screen NEGATIVE (NEGATIVE) 11/18/17 17:30 Ur Barbiturates Screen NEGATIVE (NEGATIVE) 11/18/17 17:30 Valproic Acid 19.8 ug/mL (50.0-100.0) L 11/17/17 17:26 Ur Tricyclics Screen POSITIVE (NEGATIVE) H 11/18/17 17:30 Ur Phencyclidine Scrn NEGATIVE (NEGATIVE) 11/18/17 17:30 Amphetamines Screen NEGATIVE (NEGATIVE) 11/18/17 17:30 U Methamphetamines Scrn NEGATIVE (NEGATIVE) 11/18/17 17:30 U Benzodiazepines Scrn POSITIVE (NEGATIVE) H 11/18/17 17:30 U Cocaine Metab Screen NEGATIVE (NEGATIVE) 11/18/17 17:30 U Cannabinoids Screen NEGATIVE (NEGATIVE) 11/18/17 17:30 - Physical Exam Vitals and I&O: Vital Signs Temp 97.9 F 11/26/17 08:10 Pulse 104 11/26/17 08:10 Resp 18 11/26/17 08:10 BP 98/59 11/26/17 08:10 Pulse Ox 96 11/26/17 04:00 Intake & Output 11/25/17 11/26/17 11/26/17 18:59 06:59 18:59 Intake Total 630 1180 Balance 630 1180 Weight (lbs) 53.07 kg 53.07 kg Intake: Tube Feeding 630 580 Other 600 Other: # Voids 4 3 # Bowel Movements 1 1 Weight Source Bedscale Bedscale Active Medications: Current Medications Acetaminophen (Tylenol 650mg/20.3ml Suspension) 650 mg GT Q6H PRN PRN Reason: Pain (Mild) Last Admin: 11/21/17 09:47 Dose: 650 mg Ascorbic Acid (Vitamin C) 500 mg GT DAILY BRAD Stop: 01/17/18 08:59 Last Admin: 11/25/17 08:06 Dose: 500 mg Bisacodyl (Dulcolax 10 Mg Supp) 10 mg RC DAILY PRN PRN Reason: Constipation Stop: 01/16/18 22:18 [place] Oil/[place] Balsam/Trypsin (Venelex) 1 appl TP DAILY BRAD Stop: 01/18/18 08:59 Last Admin: 11/25/17 16:27 Dose: 1 appl Divalproex Sodium (Depakote Sprinkle) 125 mg GT TID BRAD; Protocol Stop: 01/17/18 10:59 Last Admin: 11/25/17 21:47 Dose: 125 mg Docusate Sodium (Colace) 100 mg GT DAILY BRAD Stop: 01/17/18 08:59 Last Admin: 11/25/17 08:06 Dose: 100 mg Lactobacillus Rhamnosus (Culturelle 15b) 1 each PO DAILY BRAD Stop: 01/18/18 13:59 Last Admin: 11/25/17 08:06 Dose: 1 each Levothyroxine Sodium (Synthroid) 0.075 mg PO QDAC BRAD Stop: 01/17/18 07:29 Last Admin: 11/26/17 06:44 Dose: 0.075 mg Lorazepam (Ativan) 0.5 mg PO Q6H PRN; Protocol PRN Reason: Agitation Stop: 01/17/18 09:04 Last Admin: 11/25/17 21:47 Dose: 0.5 mg Lorazepam (Ativan) 0.5 mg IVP Q6HR PRN; Protocol PRN Reason: Agitation Stop: 01/21/18 09:21 Last Admin: 11/24/17 21:30 Dose: 0.5 mg Miscellaneous (Probiotic Screen) 1 ea MC PRN PRN PRN Reason: PROTOCOL Stop: 01/18/18 11:34 Ondansetron HCl (Zofran Odt) 4 mg SL Q6HR PRN PRN Reason: Nausea Stop: 01/16/18 22:18 Quetiapine Fumarate (Seroquel) 100 mg GT BID BRAD Stop: 01/19/18 08:59 Last Admin: 11/25/17 16:24 Dose: 100 mg Zinc Sulfate (Zinc Sulfate) 220 mg GT DAILY BRAD Stop: 01/17/18 08:59 Last Admin: 11/25/17 08:06 Dose: 220 mg General: Alert, Other (Confused and agressive at moments) HEENT: Atraumatic Neck: Supple Cardiovascular: Regular rate Lungs: Clear to auscultation Abdomen: Bowel sounds, Soft Extremities: Other (No edema) Neurological: Other (Non ambulatory) Skin: Other (Decubit ulcers in thoracic and hip area improving.) Psych/Mental Status: Other (Patient is confused) - Procedures Procedures: Procedures Procedure Code Date EXCISION OF BACK SUBCU/FASCIA, OPEN APPROACH [id number] 11/17/17 EXCISION OF PELVIC SUBCU/FASCIA, OPEN APPROACH [id number] 11/17/17 Assessment/Plan - Assessment Assessment: Patient is awake, agitated at moments. Patient was discharge but SNF did not accepted him back, SNF is DUMPING the patient in this hospital, now we have to look for placement. Patient is medically clear to be DC to an SNF. Dx: Increased in agitation, Dehydration, Hypotension, Failure to trieve, Decubit ulcer in thoracic area and hip area, COPD, Schizophrenia, Bipolar, Dysphagia, UTI. - Plan Plan: Patient is continue with SNF meds, wound treatment is continue. Patient improving. Awaiting placement, due that SNF were he came from did not accepted him back. IV NS and IV AB stopped. will continue to monitor. Nutritional Asmnt/Malnutr-PDOC - Dietary Evaluation Malnutrition Findings (Please click <Entered> for more info): Nutritional Asmnt/Malnutrition Start: 11/18/17 14: 31 Text: Status: Complete Freq: Protocol: Document 11/18/17 14:31 LCFITOG (Rec: 11/18/17 15:02 LCFITOG [email or web address]) Nutritional Asmnt/Malnutrition Patient General Information Nutritional Screening High Risk Diagnosis dehydration Pertinent Medical Hx/Surgical Hx thyroid, Gtube placement, bipolar, anxiety, schizophrenia Subjective Information Pt admitted with Gtube and multiple wounds. Per nurse note, pt may have surgical procedure for excisional debridement decubitus ulcers, wait for consent. Current Diet Order/ Nutrition Support Jevity 1.2 237ml x 4 daily Pertinent Medications vit C, colace, synthroid, seroquel, nacl 0.9%, zinc Pertinent Labs 11/18 Na 135, Cr 0.5 Nutritional Hx/Data Height 1.68 m Height (Calculated Centimeters) 167.6 Current Weight (lbs) 48.534 kg Weight (Calculated Kilograms) 48.5 Weight (Calculated Grams) 60504.4 [place] Body Weight 142 Body Mass Index (BMI) 17.2 Weight Status Underweight GI Symptoms GI Symptoms None Last BM none Difficult in: None Usual diet at home jevity 1.2 237ml x 4 daily at care facility per chart Skin Integrity/Comment: pressure area reddened to coccyx and ulceration to upper back Estimated Nutritional Goals BEE in Kcals: Using Current wt Calories/Kcals/Kg 25-30 Kcals Calculated 5753-1694 Protein: Using Current wt Protein g/k.2-1.4 Protein Calculated 59-69 Fluid: ml 1470-1715ml (1ml/kcal) Nutritional Problem 2. Problem Problem inadequate intake from enteral feeding Etiology bolus feeding not meeting 100% of nutritional needs Signs/Symptoms: bolus feeding only provide 1138kcal and 53g protein 1. Problem Problem increased nutrition needs Etiology impaired skin integrity and underweight Signs/Symptoms: ulcer/wounds, BMI 17.3 Intervention/Recommendation Comments 1. Recommend increased bolus feeding to 235ml x 5 times daily. This will provide 1422kcal, 66g protein, 956ml free water, meeting 100% of nutritional needs 2. Monitor TF tolerance, wt, skin integrity and labs 3. F/U as high risk in 2-3 days, 11/20-11/21 Expected Outcomes/Goals Expected Outcomes/Goals 1. Pt to meet at least 75% of nutritional needs via nutrition support with tolerance 2. Wt stability, skin integrity to improve, labs to approach WNL.
[2017-11-26] MEDS: Docusate Sodium 100 mg/10 mL UD GT SCH ×2 (09:18→09:26)
[2017-11-26] MEDS: Lactobacillus Rhamnosus GG 15 Billion CFU CAP.SPRINK PO SCH ×2 (09:18→09:26)
[2017-11-26] MEDS: Venelex 60gm Tube TP SCH ×2 (09:26→11:19)
--- NOTE | 2017-11-27 09:29 | Discharge Summary ---
General Discharge Summary - Discharge Summary Date of Admission: 11/17/17 Admitting Diagnosis: Increased in agitation, Dehydration, Hypotension, Failure to thrieve, Decub Discharge Date: 11/26/17 Discharge Diagnosis: Increased in agitation, Dehydration, Hypotension, Failure to thrieve, Decubit ulcer in thoracic and hip area, COPD, Bipolar, Dysphagia. Hospital Course: Patient was started in IV NS, IV AB, Continue with SNF meds, decubit ulcer were debridated, Condition at Discharge: Stable Disposition: Discharge/Transfered to SNF Home Medications: Home Medication Medication Instructions Recorded Type Acetaminophen [Mapap] 30 ml GT Q6H PRN 11/17/17 History Ascorbic Acid [Vitamin C] 500 mg GT DAILY 11/17/17 History Bisacodyl 10 mg RC DAILY PRN 11/17/[address] [Depakote DR] 125 mg GT TID 11/17/17 History Docusate Sodium [Colace] 100 mg GT DAILY 11/17/17 History Hyoscyamine Sulfate [Levsin-Sl] 1 - 2 mg SL Q4H PRN 11/17/17 History Levothyroxine [Synthroid] 0.075 mg PO QDAC 11/17/17 History Midodrine [Proamatine] 10 mg GT Q6HR 11/17/17 History Ondansetron [Zofran Odt] 4 mg PO Q6HR PRN 11/17/17 History Protein Supplement [Promod] 30 ml GT DAILY 11/17/17 History Zinc Sulfate 220 mg GT DAILY 11/17/17 History Balsam Jennifer/[place] Oil [Venelex] 1 appl TP DAILY appl 11/26/17 Rx Lactobacillus Rhamnosus GG 15B 1 each PO DAILY cap.sprink 11/26/17 Rx [Culturelle 15B] Lorazepam [Ativan] 0.5 mg PO Q6H PRN tab 11/26/17 Rx QUEtiapine Fumarate [SEROquel] 100 mg GT BID tab 11/26/17 Rx Discharge Diet: 2 Gram Sodium Consults and Follow-Up: JASON JIMENEZ [Other] not on staff,PCP is [Primary Care Provider] - Instructions: Dehydration, Adult, [id number], Wound Debridement
== END 2017-11-26 16:41 | DRG 570 ==
LOC: ER 17:15 → TELE 20:25
PROVIDERS: ADMIT General Practice; ATTEND General Practice
PROC: 0JB70ZZ Excision of Back Subcutaneous Tissue and Fascia, Open Approach (ICD-10-PCS; principal; 2017-11-19)
PROC: 0JB70ZZ Excision of Back Subcutaneous Tissue and Fascia, Open Approach (ICD-10-PCS; 2017-11-19)
DX: L89.114 Pressure ulcer of right upper back, stage 4 (principal); R53.2 Functional quadriplegia; E43 Unspecified severe protein-calorie malnutrition; Z68.1 Body mass index [BMI] 19.9 or less, adult; N39.0 Urinary tract infection, site not specified; F03.91 Unspecified dementia, unspecified severity, with behavioral disturbance; E86.0 Dehydration; L89.213 Pressure ulcer of right hip, stage 3; I95.9 Hypotension, unspecified; R62.7 Adult failure to thrive; J44.9 Chronic obstructive pulmonary disease, unspecified; F41.9 Anxiety disorder, unspecified; M41.9 Scoliosis, unspecified; L89.899 Pressure ulcer of other site, unspecified stage; F25.0 Schizoaffective disorder, bipolar type; E05.90 Thyrotoxicosis, unspecified without thyrotoxic crisis or storm; R13.10 Dysphagia, unspecified; I25.10 Atherosclerotic heart disease of native coronary artery without angina pectoris; I50.9 Heart failure, unspecified; F29 Unspecified psychosis not due to a substance or known physiological condition; Z88.0 Allergy status to penicillin; Z93.1 Gastrostomy status; Z74.01 Bed confinement status
CPT/HCPCS: 36415-UA; 71045-TC; 72072-TC; 80053-TC; 80164-TC; 80307; 81001-TC; 82948-90; 83735-TC; 84100-TC; 84443-TC; 85025-TC; 87086-90; 93005; J1956; J2060; J2704; J3010; J3475; J3490; J7030; J7121; X5958; Z7610